=== PATIENT | female | born 1950 | race Caucasian/White ===

== ENCOUNTER 2017-11-07 11:12 | Inpatient (IN) ==
[2017-11-07] MEDS ORDERED: Lidocaine PF 1% Inj 5 ML Syringe INFILTRATN ONE (12:00)
[2017-11-07] MEDS ORDERED: Phenylephrine/NS 1000 MCG/10ML Syringe IV.PUSH ONE (12:00)
[2017-11-07] MEDS ORDERED: Vancomycin Inj 1 GM/200 ML PIGGYBACK IV.SIG ONE (13:23)
[2017-11-07] MEDS ORDERED: Piperacil/Tazo 4.5 GM Premix 4.5 GM/100 ML BAG IV.SIG ONE (13:24)
[2017-11-07 13:57] LABS: Baso # (Auto) 0.1 th/mm3 (0.0-0.2); Baso % (Auto) 0.9 % (0.0-2.0); Eos # (Auto) 0.2 th/mm3 (0.0-0.4); Eos % (Auto) 1.7 % (0.0-4.0); Hematocrit 45.6 % (35.0-46.0); Hemoglobin 15.6 gm/dL (11.6-15.3); Lymph # (Auto) 1.6 th/mm3 (1.0-4.8); Mean Corpuscular HGB Conc 34.1 % (32.0-36.0); Mean Corpuscular Hemoglobin 30.4 pg (27.0-34.0); Mean Corpuscular Volume 89.2 fL (80.0-100.0); Mean Platelet Volume 10.1 fL (7.0-11.0); Mono # (Auto) 0.7 th/mm3 (0.0-0.9); Mono % (Auto) 8.2 % (0.0-8.0); Neut # (Auto) 6.3 th/mm3 (1.8-7.7); Neut % (Auto) 71.2 % (16.0-70.0); Platelet Count 165 th/mm3 (150-450); Red Blood Count 5.11 mil/mm3 (4.00-5.30); Red Cell Distribution Width 13.7 % (11.6-17.2); White Blood Count 8.9 th/mm3 (4.0-11.0)
--- NOTE | 2017-11-07 13:57 | ED ---
HPI General Chief complaint: Extremity Injury, Upper Stated complaint: Hand Surgery Time Seen by Provider: 11/07/17 12:51 Source: patient and family Mode of arrival: ambulatory Limitations: no limitations History of Present Illness HPI narrative: 67-year-old female that presents to the ED for evaluation of admission for hand surgery. Patient reports that she had surgery on October [address] Nichols for an infection of the left third digit. She has been having IV antibiotics through PICC line on the left arm. She states that she has been compliant with the IV medications but today she went to see her doctor who unfortunately some medication and the surgeon on the visit today Dr Al recommended that she comes here for admission for surgery this afternoon as well as new IV antibiotics. She states that currently her pain is 6 out of 10. She denies any fevers chills or sweats. She does have a history of diabetes. Denies any injuries. Denies any numbness, drooling, weakness. She has dressing in place. She denies any other medical issues at this time. Nothing makes the pain better or worse. Related Data Home Medications Medication Instructions Recorded Confirmed ceftriaxone 1 g IM Q24H 11/07/17 11/07/17 Allergies Allergy/AdvReac Type Severity Reaction Status Date / Time morphine Allergy Severe RASH,ITCHIN Verified 11/07/17 12:57 G adhesive Allergy Intermediate SKIN PULLS Verified 11/07/17 12:57 OFF Review of Systems ROS Unobtainable All other systems reviewed negative except as stated in HPI [facility] Medical History Medical History Diabetes (Acute) Heart attack (Acute) Hypertension (Acute) Surgical History Surgical History H/O hand surgery (Acute) Lens replaced (Acute) Previous back surgery (Acute) Social History Social History Substance History: No History of Abuse Second Hand Smoke Exposure: Yes Smoking Status: Current every day smoker Tobacco Type: Cigarettes How Often Do You Have a Drink Containing Alcohol: Never Recent Travel in [facility] within the Last 8 Weeks: No Recent Out of Country Travel within the Last 8 Weeks: No Immunization History Tetanus Immunization: Unsure Hx Influenza Vaccine This Season: Yes Exam Narrative Exam Narrative: GENERAL: Well-appearing SKIN: Focused skin assessment warm/dry. Patient has erythema and signs of surgical scar on the left third digit. Patient has a line on the left arm. HEAD: Atraumatic. Normocephalic. EYES: Pupils equal and round. No scleral icterus. No injection or drainage. ENT: No nasal bleeding or discharge. Mucous membranes pink and moist. Tongue is midline. No uvuladeviation. NECK: Trachea midline. No JVD. CARDIOVASCULAR: Regular rate and rhythm. No murmur appreciated. RESPIRATORY: No accessory muscle use. Clear to auscultation. Breath sounds equal bilaterally. GASTROINTESTINAL: Abdomen soft, non-tender, nondistended. Hepatic and splenic margins not palpable. MUSCULOSKELETAL: No obvious deformities. No clubbing. No cyanosis. No edema. Full range of motion of the upper and lower extremities bilaterally. 2+ pulses bilaterally. Full range of motion of all extremities bilaterally. Some difficulty moving the left third digit. NEUROLOGICAL: Awake and alert. No obvious cranial nerve deficits. Motor grossly within normal limits. Normal speech. PSYCHIATRIC: Appropriate mood and affect; insight and judgment normal. Course Initial Documented Vital Signs Temperature 98.8 F 11/07/17 11:17 Pulse Rate 78 11/07/17 11:17 Respiratory Rate 16 11/07/17 11:17 Blood Pressure 194/85 H 11/07/17 11:17 Pulse Oximetry 95 11/07/17 11:17 Last Documented Vital Signs Temperature 98.8 F 11/07/17 11:17 Pulse Rate 80 11/07/17 13:00 Respiratory Rate 20 11/07/17 13:00 Blood Pressure 197/99 H 11/07/17 13:00 Pulse Oximetry 96 11/07/17 13:00 Medical Decision Making IRAIDA Attestation IRAIDA supervised visit: Yes Attestation: I, Dr. Robertson, have reviewed the advance practice practitioner's documentation and am in agreement, met with the patient face to face, made the diagnosis, and the medical decision making was done by me. *My assessment and Findings: Septic joint 67yo F sent by hand surgeon Dr. Conde for admission and IV antibiotics. Labs reviewed, no leukocytosis. H/H normal. Glucose elevated at 255. C-reactive protein elevated at 0.48. Pt admitted to medicine. MDM Narrative Medical decision making narrative: 67-year-old female that presents to the ED for evaluation of admission for surgery. Patient was properly examined and was found to have signs and symptoms consistent with appears to be significant infection of the left third digit. Patient already evaluated by her surgeon who wanted her to come here to get admitted for surgery at 4:30 pm. I was able to get a hold of Dr. Al over the phone who attested to the plan. He wants x-ray and blood work as well as a new PICC line for the patient to start on new antibiotics as the Rocephin that she is taking is not helping. She wants ID consult as well. NPO. Patient and family agree with plan. Labs and imaging order. Started on Vancomycin and Zosyn. Case will be discussed with NEGRITA Tadeo agrees to admit the patient to his service. Differential Diagnosis Differential Diagnosis: Septic joint versus sepsis versus failed outpatient treatment Medical Records Medical records reviewed: Yes I reviewed the patient's medical records. Lab Data Lab results reviewed: Yes I reviewed the patient's lab results. Lab results narrative: CRP in the 0.4s Result diagrams: 11/07/17 13:35 11/07/17 14:35 Lab Results 11/07/17 11/07/17 11/07/17 Range/Units 13:35 13:35 14:35 WBC 8.9 (4.0-11.0) th/mm3 RBC 5.11 (4.00-5.30) mil/mm3 Hgb 15.6 H (11.6-15.3) gm/dL Hct 45.6 (35.0-46.0) % MCV 89.2 (80.0-100.0) fL MCH 30.4 (27.0-34.0) pg MCHC 34.1 (32.0-36.0) % RDW 13.7 (11.6-17.2) % Plt Count 165 (150-450) th/mm3 MPV 10.1 (7.0-11.0) fL Neut % (Auto) 71.2 H (16.0-70.0) % Lymph % (Auto) 18.0 (9.0-44.0) % [place] % (Auto) 8.2 H (0.0-8.0) % Eos % (Auto) 1.7 (0.0-4.0) % Baso % (Auto) 0.9 (0.0-2.0) % Neut # (Auto) 6.3 (1.8-7.7) th/mm3 Lymph # (Auto) 1.6 (1.0-4.8) th/mm3 [place] # (Auto) 0.7 (0.0-0.9) th/mm3 Eos # (Auto) 0.2 (0.0-0.4) th/mm3 Baso # (Auto) 0.1 (0.0-0.2) th/mm3 WBC Differential . Differential Comment Auto diff final Sodium 138 (136-145) meq/L Potassium 4.5 (3.5-5.1) meq/L Chloride 102 (98-107) meq/L Carbon Dioxide 26.0 (21.0-32.0) meq/L Anion Gap 10 (5-15) meq/L BUN 14 (7-18) mg/dL Creatinine 0.76 (0.50-1.00) mg/dL Estimated GFR 75 L (>89) mL/min Random Glucose 255 H (74-106) mg/dL Calcium 9.1 (8.5-10.1) mg/dL C-Reactive Protein 0.48 H (0.00-0.30) mg/dL Imaging Data Attestation: I personally reviewed and interpreted this imaging study as follows : Radiologist's impression: ITS Impressions Finger X-Ray 11/07/17 13:17 CONCLUSION: Soft tissue swelling and possible subluxation of the PIP joint Discharge Plan Discharge Disposition Patient Disposition: 30 Still Patient Discharge Condition Condition: Stable Physicians Team ED Provider: Lexi Robertson ED Midlevel Provider: Kenji Goddard Primary Care Provider: Primary Care Jeanine Gonzalez Attending Provider: Franki Tadeo Other Providers: Desean Al ; Oumou Koo Status ED Status: Admitted Patient
--- NOTE | 2017-11-07 14:40 | XR ---
EXAM DATE: 11/07/2017 2:22 PM EDT AGE/SEX: 67 years / Female INDICATIONS: Arthritis, evaluate infection 3rd digit of left hand, recent surgery CLINICAL DATA: This is the patient's initial encounter. Patient reports that signs and symptoms have been present for 4 - 6 days and indicates a pain score of 7/10. MEDICAL/SURGICAL HISTORY: Arthritis. . left hand, 3rd digit COMPARISON: No prior exams available for comparison. FINDINGS: Views of the left third digit obtained. There is soft tissue swelling. There does appear to be sublux ation PIP joint. There are slight arthritic changes. No bony destruction. No fracture seen No radiopa que foreign bodies seen. CONCLUSION: Soft tissue swelling and possible subluxation of the PIP joint Electronically signed by: Dell Car MD 11/07/2017 2:39 PM EDT
[2017-11-07 15:37] LABS: Calcium 9.1 mg/dL (8.5-10.1)
[2017-11-07 15:40] LABS: Potassium 4.5 meq/L (3.5-5.1)
--- NOTE | 2017-11-07 16:20 | P.HP ---
History of Present Illness Service: [facility] Primary Care Physician: No Primary Care Physician Chief Complaint: left 3rd finger infection History of Present Illness: Mrs. Su is a 67 yo F with PMH of HTN, T2DM, CAD (s/p prior stenting), tobacco abuse who presents to [facility] ED at recommendation of her hand surgeon for drainage from her left 3rd digit. Patient states that she has been dealing with persistent infection of her left third finger for ~ 1 month. Patient first noticed drainage from area around her L third nail in early October; she went to an urgent care facility and was given oral antibiotics (unspecified). Patient states that her symptoms worsened so she returned to the facility and was given a IM antibiotic. Patient was given instructions to go to a hand surgeon but she was not able to. Patient instead went to ED; I&D performed. Patient was then referred to Dr. Nichols; patient underwent surgical wash 10/20 and subsequent IV antibiotic therapy. She has been following up with infectious disease and hand surgery until she was sent to ED today for additional drainage. No reported fevers. No chest pain, shortness of breath, abnormal bowel movements, or abnormal urination. She is frequently thirsty. Patient states that she has not been taking medications for CAD protection, HTN , or T2DM and that she is generally noncompliant with taking medications at home. - Diagnosis (1) Septic arthritis of interphalangeal joint of finger of left hand (2) T2DM (type 2 diabetes mellitus) (3) HTN (hypertension) (4) CAD (coronary artery disease) (5) Tobacco abuse - Inpatient Certification If this patient has been admitted as an Inpatient: I certify that the inpatient services were ordered in accordance with Medicare regulations governing the order. This includes certification that hospital inpatient services are reasonable and necessary and in the case of services not specified as inpatient-only under 42 CFR 419.22(n), that they are appropriately provided as inpatient services in accordance to with the 2-midnight benchmark under 43 CFR 412.3(e) Review of Systems Constitutional: Denies body ache(s), Denies chills Ears, Nose, Mouth, and Throat: Denies difficulty swallowing, Denies headache(s) Cardiovascular: Denies chest pain, Denies excessive sweating, Denies generalized swelling Respiratory: Denies chest congestion, Denies cough Gastrointestinal: Denies abdominal pain, Denies bright, red blood in stools Musculoskeletal: Reports joint pain (L hand), Reports joint swelling (L hand) Skin/Breast: Denies acne, Denies bleeding lesions Neurologic: Denies abnormal speech, Denies numbness Psychiatric: Denies behavioral changes, Denies change in appetite Endocrine: Reports increased thirst, Denies cold intolerance PMFSH - History History Provided By: Patient - Medical History Medical History: Medical History (Last Updated 11/07/17 @ 16:52 by Oumou Koo MD) Anxiety Cataract Cervical stenosis of spine Osteoarth NOS-shlder Rotator cuff injury Tubal ligation status Diabetes Heart attack Hypertension - Surgical History Surgical History: Surgical History (Last Updated 11/07/17 @ 22:19 by Franki Tadeo MD, R3) History of foot surgery (Acute) H/O hand surgery (Acute) H/O cervical spine surgery History of tonsillectomy - Family History Family History: Family History (Last Updated 11/07/17 @ 22:19 by Franki Tadeo MD, R3) Other CAD (coronary artery disease) - Tobacco History Second Hand Smoke Exposure: Yes Tobacco Use In Past 30 Days: Yes Smoking Status: Current every day smoker Tobacco Type: Cigarettes - Alcohol History How Often Do You Have a Drink Containing Alcohol: Never - Substance Use History Substance History: No History of Abuse - Travel History Recent Travel in the [place] Within the Last 8 Weeks: No Recent Travel Out of the Country Within the Last 8 Weeks: No - Immunization History Tetanus Immunization: Unsure Hx Influenza Vaccine This Season: Yes Medications and Allergies Allergies Allergy/AdvReac Type Severity Reaction Status Date / Time morphine Allergy Severe RASH,ITCHIN Verified 11/07/17 12:57 G adhesive Allergy Intermediate SKIN PULLS Verified 11/07/17 12:57 OFF Home Medications Medication Instructions Recorded Confirmed Type ceftriaxone 1 g IM Q24H 11/07/17 11/07/17 History Exam Vital signs: Vital Signs 11/07/17 11:17 11/07/17 13:00 Temperature 98.8 F Pulse Rate 78 80 Respiratory Rate 16 20 Blood Pressure 194/85 H 197/99 H Pulse Oximetry 95 96 Intake & Output 11/06/17 11/07/17 11/07/17 18:59 06:59 18:59 Intake Total 100 / 100 Balance 100 / 100 Weight 79.746 kg Intake: IV 100 / 100 Zosyn 4.5 GM Premix 4.5 gm In 100 / 100 100 ml @ 200 mls/hr IV.SIG ONCE ONE Rx#:[id number] Narrative: General: NAD Skin: left 3rd finger covered in gauze; no other visible lesions HEENT: normocephalic. Normal mucous membranes Neck: no appreciated thyromegaly CV: Regular rate and rhythm w/o murmurs. Normal peripheral perfusion RESP: CTAB; normal rate ABD: Soft, nontender, nondistended MSK: No calf asymmetry or tenderness. Grossly normal ROM and motor function Neuro: Awake/alert. Grossly normal CN; grossly normal peripheral motor/sensory function Results - Labs CBC & Chem 7: 11/07/17 13:35 11/07/17 14:35 Labs: Laboratory Results - last 24 hr 11/07/17 11/07/17 11/07/17 13:35 13:35 14:35 WBC 8.9 RBC 5.11 Hgb 15.6 H Hct 45.6 MCV 89.2 MCH 30.4 MCHC 34.1 RDW 13.7 Plt Count 165 MPV 10.1 Neut % (Auto) 71.2 H Lymph % (Auto) 18.0 [place] % (Auto) 8.2 H Eos % (Auto) 1.7 Baso % (Auto) 0.9 Neut # (Auto) 6.3 Lymph # (Auto) 1.6 [place] # (Auto) 0.7 Eos # (Auto) 0.2 Baso # (Auto) 0.1 WBC Differential . Differential Comment Auto diff final Sodium 138 Potassium 4.5 Chloride 102 Carbon Dioxide 26.0 Anion Gap 10 BUN 14 Creatinine 0.76 Estimated GFR 75 L Random Glucose 255 H Calcium 9.1 C-Reactive Protein 0.48 H - Imaging Impressions Finger X-Ray 11/07/17 13:17 CONCLUSION: Soft tissue swelling and possible subluxation of the PIP joint Caprini VTE Risk Assessment Caprini VTE Risk Assessment: Moderate/High Risk (score >= 2) VTE Pharmacological Exception Reason: Documented (will wait until 24hrs post-op) Caprini Risk Assessment Model: Point Value = 1 Point Value = 2 Point Value = 3 Point Value = 5 Age 41-60 Minor surgery BMI > 25 kg/m2 Swollen legs Varicose veins or History of unexplained or recurrent spontaneous Oral contraceptives or hormone replacement Sepsis (< 1 month) Serious lung disease, including pneumonia (< 1 month) Abnormal pulmonary function Acute myocardial infarction Congestive heart failure (< 1 month) History of inflammatory bowel disease Medical patient at bed rest Age 61-74 Arthroscopic surgery Major open surgery (> 45 min) Laparoscopic surgery (> 45 min) Malignancy Confined to bed (> 72 hours) Immobilizing plaster cast Central venous access Age >= 75 History of VTE Family history of VTE Factor V Leiden Prothrombin [id number] Lupus anticoagulant Anticardiolipin antibodies Elevated serum homocysteine Heparin-induced thrombocytopenia Other congenital or acquired thrombophilia Stroke (< 1 month) Elective arthroplasty Hip, pelvis, or leg fracture Acute spinal cord injury (< 1 month) Prophylaxis Regimen: Total Risk Factor Score Risk Level Prophylaxis Regimen 0-1 Low Early ambulation 2 Moderate Order ONE of the following: *Sequential Compression Device (SCD) *Heparin 5000 units SQ BID 3-4 Higher Order ONE of the following medications: *Heparin 5000 units SQ TID *Enoxaparin/Lovenox 40 mg SQ daily (WT < 150 kg, CrCl > 30 mL/min) *Enoxaparin/Lovenox 30 mg SQ daily (WT < 150 kg, CrCl > 10-29 mL/min) *Enoxaparin/Lovenox 30 mg SQ BID (WT < 150 kg, CrCl > 30 mL/min) AND/OR *Sequential Compression Device (SCD) 5 or more Highest Order ONE of the following medications: *Heparin 5000 units SQ TID (Preferred with Epidurals) *Enoxaparin/Lovenox 40 mg SQ daily (WT < 150 kg, CrCl > 30 mL/min) *Enoxaparin/Lovenox 30 mg SQ daily (WT < 150 kg, CrCl > 10-29 mL/min) *Enoxaparin/Lovenox 30 mg SQ BID (WT < 150 kg, CrCl > 30 mL/min) AND *Sequential Compression Device (SCD) Assessment and Plan - Assessment (1) Septic arthritis of interphalangeal joint of finger of left hand Code(s): M00.9 - Pyogenic arthritis, unspecified Status: Acute (2) T2DM (type 2 diabetes mellitus) Code(s): E11.9 - Type 2 diabetes mellitus without complications Status: Chronic (3) HTN (hypertension) Code(s): I10 - Essential (primary) hypertension Status: Chronic (4) CAD (coronary artery disease) Code(s): I25.10 - Atherosclerotic heart disease of [place] coronary artery without angina pectoris Status: Chronic (5) Tobacco abuse Code(s): Z72.0 - Tobacco use Status: Chronic - Plan Left finger infection Impression: chronic infection of left hand 3rd digit; refractory to prior surgical intervention and IV antibiotics. Previously with MSSA Hand surgery consulted -s/p arthrotomy wash of DIP joint of left hand -ID consulted -Add Levofloxacin -Continue Vancomycin; pharmacy consulted for dosing -Follow cultures -Check ESR/CRP -Stella 5 for pain control T2DM Impression: Unmedicated at home -Diabetic diet -Will start low dose SS with Accuchecks and determine insulin regimen -Will consider oral meds at discharge -Will check A1C since implications with infection of hand HTN Impression: Prior HTN; reportedly normotensive often at home -Will continue PRN Vasotec -Will start Lisinopril CAD Impression: Prior stenting years prior. Not on ASA, statin, CHERELLE, or BB -Will start ASA 81mg daily -Will start CHERELLE -Will check CMP as patient should have high ASCVD regardless of cholesterol -Will arrange outpatient f/u Tobacco abuse -Will give nicotine patch if desired DVT PPX SCD's Will initiate chemical PPX after >24hrs post op Code Status: Full code Discharge Planning: Per ID and Hand surgery recommendations
[2017-11-07] MEDS ORDERED: Lidocaine PF 2% Inj 10 ML Ampul ONE (16:39)
[2017-11-07] MEDS ORDERED: Bupivacaine PF 0.5% Inj 30 ML Vial ONE (16:39)
[2017-11-07] MEDS ORDERED: Acetaminophen 325 MG Tablet PO PRN (16:42)
[2017-11-07] MEDS ORDERED: Neomycin/Polymyxin G.U. Irrigant 1 ML Ampul ONE (16:44)
[2017-11-07] MEDS ORDERED: Dextrose 50% in Water 50 ML Vial IV.PUSH PRN (16:45)
[2017-11-07] MEDS ORDERED: Sod Chloride 0.9% Inj 1,000 ML IV.CONT SCH (16:45)
--- NOTE | 2017-11-07 16:55 | P.CONID ---
History of Present Illness Service: Infectious disease Consult date: 11/07/17 Requesting Physician: Desean Al Reason for Consult: Evaluate patient with left middle finger infection Primary Care Provider: No Primary Care Physician Family Provider: Marivel Nichols MD History of Present Illness: Patient seen and examined. Records reviewed. Patient is a 67-year-old female, brought into the hospital for further management of her left middle finger infection. 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 Recently she had an infection on her left middle finger with some purulence, and it got worse , and she was seen by Dr. Nichols. Patient underwent surgery for the infection and this was around October 20. Culture from surgery grew methicillin sensitive staph aureus. After surgery patient was apparently started on IV Rocephin once a day. She was referred to infectious disease specialist as an outpatient and had seen her twice. The dressing changes gets done in the hand surgery office at least 2-3 times a week. He was reportedly doing well, and today she was seen in the office, and the covering hand surgeon saw the patient and there was some purulence seen so the patient was told to go to the hospital for further management. She has not had any fever chills or sweats. She has not had any rash or itching. She has been getting diarrhea since she has been on IV antibiotics. No nausea or vomiting. Infectious disease consultation has been requested to evaluate the patient. Review of Systems Constitutional: Denies chills, Denies fever(s) Eyes: Denies discharge, Denies itchy eyes Ears, Nose, Mouth, and Throat: Denies difficulty swallowing, Denies ear discharge, Denies ear pain, Denies facial pain, Denies hoarseness, Denies sore throat Cardiovascular: Denies chest pain, Denies shortness of breath Respiratory: Denies cough, Denies shortness of breath Gastrointestinal: Reports loose stools, Denies abdominal pain, Denies nausea, Denies pain with swallowing, Denies vomiting Genitourinary: Denies urinary incontinence, Denies urinary urgency Skin/Breast: Denies itching Neurologic: Denies weakness Hematologic/Lymphatic: Denies easy bleeding, Denies easy bruising PMFSH - History History Provided By: Patient - Medical History Medical History: Medical History (Last Updated 11/07/17 @ 16:52 by Oumou Koo MD) Anxiety Cataract Cervical stenosis of spine Osteoarth NOS-shlder Rotator cuff injury Tubal ligation status Diabetes Heart attack Hypertension - Surgical History Surgical History: Surgical History (Last Updated 11/07/17 @ 16:49 by Oumou Koo MD) H/O cervical spine surgery History of foot surgery History of tonsillectomy H/O hand surgery - Tobacco History Second Hand Smoke Exposure: Yes Tobacco Use In Past 30 Days: Yes Smoking Status: Current every day smoker Tobacco Type: Cigarettes - Alcohol History How Often Do You Have a Drink Containing Alcohol: Never - Substance Use History Substance History: No History of Abuse - Travel History Recent Travel in the [place] Within the Last 8 Weeks: No Recent Travel Out of the Country Within the Last 8 Weeks: No - Immunization History Tetanus Immunization: Unsure Hx Influenza Vaccine This Season: Yes Medications and Allergies Allergies Allergy/AdvReac Type Severity Reaction Status Date / Time morphine Allergy Severe RASH,ITCHIN Verified 11/07/17 12:57 G adhesive Allergy Intermediate SKIN PULLS Verified 11/07/17 12:57 OFF Home Medications Medication Instructions Recorded Confirmed Type ceftriaxone 1 g IM Q24H 11/07/17 11/07/17 History Exam Vital signs: Vital Signs 11/07/17 11:17 11/07/17 13:00 Temperature 98.8 F Pulse Rate 78 80 Respiratory Rate 16 20 Blood Pressure 194/85 H 197/99 H Pulse Oximetry 95 96 Intake & Output 11/06/17 11/07/17 11/07/17 18:59 06:59 18:59 Intake Total 100 / 100 Balance 100 / 100 Weight 79.746 kg Intake: IV 100 / 100 Zosyn 4.5 GM Premix 4.5 gm In 100 / 100 100 ml @ 200 mls/hr IV.SIG ONCE ONE Rx#:[id number] Narrative: Physical Examination GENERAL: Patient is a well-nourished, well-developed female, awake and alert , not in respiratory distress. SKIN: Warm and dry. No generalized rash, no ecchymoses and no evidence of embolic lesions. HEAD: Atraumatic. Normocephalic. No temporal wasting, or tenderness. EYES: [place] conjunctiva. No petechia or hemorrhage. Pupils equal, round and reactive to light. Extraocular movements full and intact. No scleral icterus. No injection or drainage. EARS, NOSE AND THROAT: Nose without bleeding or purulent nasal discharge. No sinus tenderness. Mucous membranes pink and moist. No oral lesions noted. No exudate. No oral thrush. NECK: Trachea midline. Supple and not tender, no meningeal signs CARDIOVASCULAR: Regular rate and rhythm. No murmurs, rubs or gallops heard RESPIRATORY: Clear to auscultation. Breath sounds equal bilaterally. No rales , wheezing or rhonchi ABDOMEN: Soft, non-tender, nondistended. Bowel sounds present and normoactive. No guarding. No rebound. No organomegaly. EXTREMITIES: No clubbing, cyanosis, or edema. L hand - LMF swollen with dark pink color, incision dry, and a deformity prominence below the base on nail, tender on palpation, not fluctuant, no purulence seen. No calf tenderness. Well perfused and warm. NEUROLOGICAL: Awake and alert. Cranial nerves grossly intact. Motor grossly within normal limits. PSYCHIATRIC: Normal affect, calm and cooperative. LINE: No evidence of infection Results - Labs CBC & Chem 7: 11/07/17 13:35 11/07/17 14:35 Labs: Laboratory Results - last 24 hr 11/07/17 11/07/17 11/07/17 13:35 13:35 14:35 WBC 8.9 RBC 5.11 Hgb 15.6 H Hct 45.6 MCV 89.2 MCH 30.4 MCHC 34.1 RDW 13.7 Plt Count 165 MPV 10.1 Neut % (Auto) 71.2 H Lymph % (Auto) 18.0 [place] % (Auto) 8.2 H Eos % (Auto) 1.7 Baso % (Auto) 0.9 Neut # (Auto) 6.3 Lymph # (Auto) 1.6 [place] # (Auto) 0.7 Eos # (Auto) 0.2 Baso # (Auto) 0.1 WBC Differential . Differential Comment Auto diff final Sodium 138 Potassium 4.5 Chloride 102 Carbon Dioxide 26.0 Anion Gap 10 BUN 14 Creatinine 0.76 Estimated GFR 75 L Random Glucose 255 H Calcium 9.1 C-Reactive Protein 0.48 H - Imaging Impressions Finger X-Ray 11/07/17 13:17 CONCLUSION: Soft tissue swelling and possible subluxation of the PIP joint Assessment and Plan - Plan IMPRESSION LMF infection - previous surgery done and C/S MSSA - ?worsening, ?new infection, ?different organism, ?developing deeper infection Diarrhea, possibly Abx associated, R/O C diff colitis RECOMMENDATION ESR and CRP To go to OR today Received dose of Vanco and Zosyn today Will continue vanco Add Levaquin for now Follow C/S results Will D/W hand surgery after surgery done to determine course of Abx Rx Monitor progress I will follow along with you Thank you for this consultation Explained plan to patient and family
[2017-11-07] MEDS ORDERED: Vancomycin Consult Pharmacy 1 EACH OTHER SCH (17:00)
--- NOTE | 2017-11-07 18:33 | P.OP ---
- Preoperative Diagnosis (1) Septic arthritis of interphalangeal joint of finger of left hand - Postoperative Diagnosis (1) Septic arthritis of interphalangeal joint of finger of left hand Date of procedure: 11/07/17 Procedure: arthrotomy wash distal interphalangeal joint left middle finger Anesthesia: MAC Surgeon: Desean Al MD Estimated blood loss (mL): 5 Tourniquet time (min): 24 Pathology: other (swab for culture sensitivity) Operation and Findings: septic arthritis with loss of cartilage head of middle phalanx distal interphalangeal joint left middle finger
[2017-11-07] MEDS ORDERED: HYDROmorphone PF Inj 2 MG/ML Vial ONE (18:35)
[2017-11-07] MEDS ORDERED: fentaNYL Citrate Inj 100 MCG/2 ML Ampul ONE (18:36)
--- NOTE | 2017-11-07 19:13 | MP ---
cc: Desean Al MD, Srikanth MD DATE OF OPERATION: 11/07/2017 PREOPERATIVE DIAGNOSIS: Septic arthritis distal interphalangeal joint, left middle finger. POSTOPERATIVE DIAGNOSIS: Septic arthritis distal interphalangeal joint, left middle finger. PROCEDURE: Arthrotomy and wash distal interphalangeal joint, left middle finger. SURGEON: Desean Al MD ANESTHESIA: General. ESTIMATED BLOOD LOSS: 5 mL TOURNIQUET TIME: 24 minutes at 250 mmHg. SPECIMENS: Sent for culture and sensitivity. DISPOSITION: The patient was recovered and sent to recovery in stable condition. INDICATIONS: The patient is a 67-year-old female with history of diabetes who was found to have septic arthritis of the distal interphalangeal joint, left middle finger. The patient had incision, drainage, and arthrotomy by my partner 2 weeks ago. She presented today with complaints of pain and swelling of the left middle finger. On examination, she had draining purulent material from the mid axial incision of the distal interphalangeal joint with surrounding swelling and erythema. Previously, cultures grew MSSA. She was consented for exploration, wash, arthrotomy distal interphalangeal joint, left middle finger. The patient was explained the risks and benefits of the procedure. PROCEDURE IN DETAIL: The patient was brought to the operating room and, under general anesthesia, the left upper extremity was sterilely prepped and draped. After limb elevation, tourniquet was inflated to 250 mmHg. A H-shaped incision was marked over the dorsal aspect of the distal interphalangeal joint, incorporating the previous mid axial incision. After limb elevation, tourniquet was inflated to 250mmHg. Incision was then made over the proposed incision site. soft tissue dissection was carried out. There was evidence of minimal purulence within the distal interphalangeal joint. The extensor tendon was protected and the joint was exposed, both on the radial and ulnar aspect. There was evidence of loss of cartilage from the head of the middle phalanx. A swab was obtained for culture and sensitivity. A thorough wash was given using normal saline mixed with irrigant; about a liter of solution was used. Tourniquet was deflated at 24 minutes. Packing of the joint was carried out using 1/4 inch iodoform packing material and the skin incisions were loosely approximated using 4-0 nylon in a horizontal mattress interrupted fashion. About 3 mL of local anesthesia was injected proximal aspect digital block over the dorsal aspect. She had good distal circulation at the end of the procedure. Dry dressing was applied which was held in place by Kerlix and finger splint was applied. The patient was recovered and sent to recovery in stable condition. Plan will be to continue IV antibiotics based on Infectious Disease recommendation. We will change the dressing tomorrow. Desean Al MD SE/ , 06:46 PM , 07:12 PM [email or web address]
[2017-11-07] MEDS ORDERED: Lisinopril 10 MG Tablet PO SCH (23:08)
[2017-11-07] MEDS: Insulin NovoLOG Aspart Correctional Sugar Inj SQ SCH (23:41)
[2017-11-08] MEDS: Vancomycin Inj 1,500 MG in Sodium Chlor 0.9% Inj 500 ML IV.SIG SCH ×2 (04:42→21:06)
[2017-11-08 05:07] LABS: Baso % (Auto) 0.5 % (0.0-2.0); Eos # (Auto) 0.1 th/mm3 (0.0-0.4); Eos % (Auto) 1.4 % (0.0-4.0); Hematocrit 44.2 % (35.0-46.0); Hemoglobin 14.9 gm/dL (11.6-15.3); Lymph # (Auto) 1.4 th/mm3 (1.0-4.8); Lymph % (Auto) 17.4 % (9.0-44.0); Mean Corpuscular HGB Conc 33.8 % (32.0-36.0); Mean Corpuscular Hemoglobin 30.5 pg (27.0-34.0); Mean Corpuscular Volume 90.3 fL (80.0-100.0); Mono # (Auto) 0.8 th/mm3 (0.0-0.9); Mono % (Auto) 9.4 % (0.0-8.0); Neut # (Auto) 5.8 th/mm3 (1.8-7.7); Neut % (Auto) 71.3 % (16.0-70.0); Platelet Count 135 th/mm3 (150-450); Red Blood Count 4.89 mil/mm3 (4.00-5.30); Red Cell Distribution Width 13.5 % (11.6-17.2); White Blood Count 8.1 th/mm3 (4.0-11.0)
[2017-11-08 05:30] LABS: Alanine Aminotransferase 25 U/L (10-53); C-Reactive Protein 0.66 mg/dL (0.00-0.30)
[2017-11-08 05:33] LABS: Albumin 3.2 g/dL (3.4-5.0); Alkaline Phosphatase 137 U/L (45-117); Anion Gap 10 meq/L (5-15); Aspartate Aminotransferase 17 U/L (15-37); Blood Urea Nitrogen 14 mg/dL (7-18); Calcium 8.9 mg/dL (8.5-10.1); Carbon Dioxide 25.9 meq/L (21.0-32.0); Chloride 102 meq/L (98-107); Glomerular Filtration Rate 78 mL/min (>89); Glucose,Random 272 mg/dL (74-106); Potassium 3.9 meq/L (3.5-5.1); Sodium 138 meq/L (136-145); Total Protein 6.6 g/dL (6.4-8.2)
[2017-11-08] MEDS: Senna/Docusate Sodium 8.6/50 MG Tablet PO SCH ×2 (06:18→21:05)
[2017-11-08] MEDS ORDERED: levoFLOXacin 750 MG Tablet PO SCH (09:00)
--- NOTE | 2017-11-08 10:31 | P.PN ---
Subjective Interval history: Mrs. Su was hypertensive today with BP 211/93 this morning. Patient did not report headache, chest pain, visual changes, abnormal urination, or other symptoms associated with her elevated blood pressure. Patient reports some frustration with restricted diet. Patient does not report pain in her left hand at this time after surgery. Patient refuses oral Levofloxacin, stating that since childhood she does not take medications. Physical Exam Vital signs: Vital Signs 11/07/17 11:17 11/07/17 13:00 11/07/17 16:53 Temperature 98.8 F Pulse Rate 78 80 76 Respiratory Rate 16 20 17 Blood Pressure 194/85 H 197/99 H 199/90 H Pulse Oximetry 95 96 11/07/17 18:25 11/07/17 18:30 11/07/17 18:45 Temperature 98.5 F 98.5 F 98.5 F Pulse Rate 79 79 79 Respiratory Rate 16 16 16 Blood Pressure 152/90 H 163/65 H 175/81 H Pulse Oximetry 94 L 94 L 94 L 11/07/17 19:00 11/07/17 19:19 11/07/17 19:30 Temperature 98.5 F 98.1 F 98.5 F Pulse Rate 72 69 79 Respiratory Rate 16 16 16 Blood Pressure 157/75 H 169/73 H 169/73 H Pulse Oximetry 94 L 96 94 L 11/07/17 21:00 11/07/17 21:36 11/08/17 00:00 Temperature 98.1 F 97.7 F Pulse Rate 67 73 Respiratory Rate 18 18 Blood Pressure 149/68 H 151/85 H Pulse Oximetry 97 97 97 11/08/17 04:00 Temperature 97.2 F L Pulse Rate 73 Respiratory Rate 18 Blood Pressure 147/65 H Pulse Oximetry Intake & Output 11/07/17 11/08/17 11/08/17 18:59 06:59 18:59 Intake Total 100 / 100 600 / 600 1000 / 1000 Output Total 5 / 5 Balance 100 / 100 595 / 595 1000 / 1000 Weight 79.746 kg Intake: IV 100 / 100 1000 / 1000 NS Inj 1,000 ML @ 100 mls/hr IV 1000 / 1000 .CONT .Q10H [facility] Rx#:[id number] Zosyn 4.5 GM Premix 4.5 gm In 100 / 100 100 ml @ 200 mls/hr IV.SIG ONCE ONE Rx#:[id number] Anesthesia Amount 600 / 600 Output: Estimated Blood Loss 5 / 5 Narrative: General: NAD Skin: left 3rd finger covered in gauze; no other visible lesions HEENT: normocephalic. Normal mucous membranes Neck: no appreciated thyromegaly CV: Regular rate and rhythm w/o murmurs. Normal peripheral perfusion RESP: CTAB; normal rate ABD: Soft, nontender, nondistended MSK: No calf asymmetry or tenderness. Grossly normal ROM and motor function Neuro: Awake/alert. Grossly normal CN; grossly normal peripheral motor/sensory function PSYCH: Patient anxious, crying initially Results - Labs CBC & Chem 7: 11/08/17 03:58 11/08/17 03:58 Laboratory Results - last 24 hr 11/07/17 11/07/17 11/07/17 13:35 13:35 14:35 WBC 8.9 RBC 5.11 Hgb 15.6 H Hct 45.6 MCV 89.2 MCH 30.4 MCHC 34.1 RDW 13.7 Plt Count 165 MPV 10.1 Neut % (Auto) 71.2 H Lymph % (Auto) 18.0 [place] % (Auto) 8.2 H Eos % (Auto) 1.7 Baso % (Auto) 0.9 Neut # (Auto) 6.3 Lymph # (Auto) 1.6 [place] # (Auto) 0.7 Eos # (Auto) 0.2 Baso # (Auto) 0.1 WBC Differential . Differential Comment Auto diff final ESR Sodium 138 Potassium 4.5 Chloride 102 Carbon Dioxide 26.0 Anion Gap 10 BUN 14 Creatinine 0.76 Estimated GFR 75 L POC Glucose Random Glucose 255 H Calcium 9.1 Total Bilirubin AST ALT Alkaline Phosphatase C-Reactive Protein 0.48 H Total Protein Albumin 11/07/17 11/07/17 11/08/17 19:23 23:37 03:58 WBC 8.1 RBC 4.89 Hgb 14.9 Hct 44.2 MCV 90.3 MCH 30.5 MCHC 33.8 RDW 13.5 Plt Count 135 L MPV 9.0 Neut % (Auto) 71.3 H Lymph % (Auto) 17.4 [place] % (Auto) 9.4 H Eos % (Auto) 1.4 Baso % (Auto) 0.5 Neut # (Auto) 5.8 Lymph # (Auto) 1.4 [place] # (Auto) 0.8 Eos # (Auto) 0.1 Baso # (Auto) 0.0 WBC Differential . Differential Comment Auto diff final ESR Sodium Potassium Chloride Carbon Dioxide Anion Gap BUN Creatinine Estimated GFR POC Glucose 221 H 290 H Random Glucose Calcium Total Bilirubin AST ALT Alkaline Phosphatase C-Reactive Protein Total Protein Albumin 11/08/17 11/08/17 11/08/17 03:58 03:58 07:35 WBC RBC Hgb Hct MCV MCH MCHC RDW Plt Count MPV Neut % (Auto) Lymph % (Auto) [place] % (Auto) Eos % (Auto) Baso % (Auto) Neut # (Auto) Lymph # (Auto) [place] # (Auto) Eos # (Auto) Baso # (Auto) WBC Differential Differential Comment ESR 12 Sodium 138 Potassium 3.9 Chloride 102 Carbon Dioxide 25.9 Anion Gap 10 BUN 14 Creatinine 0.74 Estimated GFR 78 L POC Glucose 258 H Random Glucose 272 H Calcium 8.9 Total Bilirubin 0.4 AST 17 ALT 25 Alkaline Phosphatase 137 H C-Reactive Protein 0.66 H Total Protein 6.6 Albumin 3.2 L - Imaging Impressions Finger X-Ray 11/07/17 13:17 CONCLUSION: Soft tissue swelling and possible subluxation of the PIP joint Assessment and Plan - Assessment (1) Septic arthritis of interphalangeal joint of finger of left hand Code(s): M00.9 - Pyogenic arthritis, unspecified Status: Acute (2) T2DM (type 2 diabetes mellitus) Code(s): E11.9 - Type 2 diabetes mellitus without complications Status: Chronic (3) HTN (hypertension) Code(s): I10 - Essential (primary) hypertension Status: Chronic (4) CAD (coronary artery disease) Code(s): I25.10 - Atherosclerotic heart disease of [place] coronary artery without angina pectoris Status: Chronic (5) Tobacco abuse Code(s): Z72.0 - Tobacco use Status: Chronic - Plan Left finger infection Impression: chronic infection of left hand 3rd digit; refractory to prior surgical intervention and IV antibiotics. Previously with MSSA. ESR 12, Cr 0.66. Blood cultures- negative x1 day Hand surgery consulted -s/p arthrotomy wash of DIP joint of left hand 11/07 -ID consulted - Continue Levofloxacin (switch to IV) -Continue Vancomycin; pharmacy consulted for dosing -[place] 5 for pain control T2DM Impression: Unmedicated at home -Diabetic diet -Continue low dose SS with Accuchecks and determine insulin regimen -Will consider oral meds at discharge -Will check A1C since implications with infection of hand HTN Impression: Hypertensive urgency today (BP 211/93 without symptoms, no lab abnormalities) Prior HTN; reportedly normotensive often at home -Will continue PRN Vasotec -Continue Lisinopril 20mg daily CAD Impression: Prior stenting years prior. Not on ASA, statin, CHERELLE, or BB -Continue ASA 81mg daily -Will start CHERELLE -Will arrange outpatient f/u Tobacco abuse -Will give nicotine patch if desired DVT PPX SCD's Will initiate chemical PPX after >24hrs post op Discharge Planning: Per ID and Hand surgery recommendations (4) CAD (coronary artery disease) Qualifiers: Coronary Disease-Associated Artery/Lesion type: [place] artery
[2017-11-08] MEDS ORDERED: LORazepam 0.5 MG Tablet PO PRN (10:33)
[2017-11-08] MEDS: Insulin NovoLOG Aspart Correctional Sugar Inj SQ SCH ×2 (14:31→21:04)
--- NOTE | 2017-11-08 19:51 | P.PNOP ---
Subjective Interval history: Patient asking to go home. Reports pain controlled over finger. Physical Exam Vital signs: Vital Signs 11/07/17 21:00 11/07/17 21:36 11/08/17 00:00 Temperature 98.1 F 97.7 F Pulse Rate 67 73 Respiratory Rate 18 18 Blood Pressure 149/68 H 151/85 H Pulse Oximetry 97 97 97 11/08/17 04:00 11/08/17 08:00 11/08/17 08:15 Temperature 97.2 F L 98.5 F Pulse Rate 73 97 H Respiratory Rate 18 20 Blood Pressure 147/65 H 211/93 H Pulse Oximetry 95 95 11/08/17 15:45 11/08/17 16:00 Temperature 98.1 F Pulse Rate 73 Respiratory Rate 18 Blood Pressure 181/82 H Pulse Oximetry 95 94 L Intake & Output 11/08/17 11/08/17 11/09/17 06:59 18:59 06:59 Intake Total 600 / 600 1000 / 1000 Output Total 5 / 5 Balance 595 / 595 1000 / 1000 Intake: IV 1000 / 1000 NS Inj 1,000 ML @ 100 mls/hr IV 1000 / 1000 .CONT .Q10H [facility] Rx#:[id number] Anesthesia Amount 600 / 600 Output: Estimated Blood Loss 5 / 5 - Routine Extremities Exam Comments: Dressing removed. Erythema over DIP joint left middle finger. Packing in place. No purulence from radial side. Purulence around ulnar side. sensation intact radial and ulnar sides. <2 sec capillary refill Results - Labs CBC & Chem 7: 11/08/17 03:58 11/08/17 03:58 Laboratory Results - last 24 hr 11/07/17 11/07/17 11/08/17 19:23 23:37 03:58 WBC 8.1 RBC 4.89 Hgb 14.9 Hct 44.2 MCV 90.3 MCH 30.5 MCHC 33.8 RDW 13.5 Plt Count 135 L MPV 9.0 Neut % (Auto) 71.3 H Lymph % (Auto) 17.4 [place] % (Auto) 9.4 H Eos % (Auto) 1.4 Baso % (Auto) 0.5 Neut # (Auto) 5.8 Lymph # (Auto) 1.4 [place] # (Auto) 0.8 Eos # (Auto) 0.1 Baso # (Auto) 0.0 WBC Differential . Differential Comment Auto diff final ESR Sodium Potassium Chloride Carbon Dioxide Anion Gap BUN Creatinine Estimated GFR POC Glucose 221 H 290 H Random Glucose Calcium Total Bilirubin AST ALT Alkaline Phosphatase C-Reactive Protein Total Protein Albumin 11/08/17 11/08/17 11/08/17 03:58 03:58 07:35 WBC RBC Hgb Hct MCV MCH MCHC RDW Plt Count MPV Neut % (Auto) Lymph % (Auto) [place] % (Auto) Eos % (Auto) Baso % (Auto) Neut # (Auto) Lymph # (Auto) [place] # (Auto) Eos # (Auto) Baso # (Auto) WBC Differential Differential Comment ESR 12 Sodium 138 Potassium 3.9 Chloride 102 Carbon Dioxide 25.9 Anion Gap 10 BUN 14 Creatinine 0.74 Estimated GFR 78 L POC Glucose 258 H Random Glucose 272 H Calcium 8.9 Total Bilirubin 0.4 AST 17 ALT 25 Alkaline Phosphatase 137 H C-Reactive Protein 0.66 H Total Protein 6.6 Albumin 3.2 L 11/08/17 11/08/17 12:05 17:27 WBC RBC Hgb Hct MCV MCH MCHC RDW Plt Count MPV Neut % (Auto) Lymph % (Auto) [place] % (Auto) Eos % (Auto) Baso % (Auto) Neut # (Auto) Lymph # (Auto) [place] # (Auto) Eos # (Auto) Baso # (Auto) WBC Differential Differential Comment ESR Sodium Potassium Chloride Carbon Dioxide Anion Gap BUN Creatinine Estimated GFR POC Glucose 221 H 191 H Random Glucose Calcium Total Bilirubin AST ALT Alkaline Phosphatase C-Reactive Protein Total Protein Albumin Microbiology 11/07/17 13:35 Blood - Peripheral Aerobic Blood Culture - Preliminary No growth in 1 day 11/07/17 13:35 Blood - Peripheral Anaerobic Blood Culture - Preliminary No growth in 1 day 11/07/17 13:40 Blood - Peripheral Aerobic Blood Culture - Preliminary No growth in 1 day 11/07/17 13:40 Blood - Peripheral Anaerobic Blood Culture - Preliminary No growth in 1 day Assessment and Plan - Ortho Post Op Day # 1 - Assessment and Plan 67yF POD1 s/p repeat I&D left middle finger DIP joint -Continue to follow cultures, continue Ab per ID -Dr Conde to re-evaluate tomorrow
[2017-11-08] MEDS: Temazepam 15 MG Capsule PO PRN (21:05)
[2017-11-09] MEDS: Insulin NovoLOG Aspart Correctional Sugar Inj SQ SCH ×5 (03:10→21:08)
[2017-11-09 06:01] LABS: Baso % (Auto) 0.7 % (0.0-2.0); Eos # (Auto) 0.2 th/mm3 (0.0-0.4); Eos % (Auto) 3.6 % (0.0-4.0); Hematocrit 42.6 % (35.0-46.0); Hemoglobin 14.3 gm/dL (11.6-15.3); Lymph # (Auto) 1.9 th/mm3 (1.0-4.8); Lymph % (Auto) 28.9 % (9.0-44.0); Mean Corpuscular HGB Conc 33.6 % (32.0-36.0); Mean Corpuscular Hemoglobin 30.3 pg (27.0-34.0); Mean Corpuscular Volume 90.1 fL (80.0-100.0); Mean Platelet Volume 8.9 fL (7.0-11.0); Mono # (Auto) 0.8 th/mm3 (0.0-0.9); Mono % (Auto) 11.4 % (0.0-8.0); Neut # (Auto) 3.7 th/mm3 (1.8-7.7); Neut % (Auto) 55.4 % (16.0-70.0); Platelet Count 126 th/mm3 (150-450); Red Blood Count 4.72 mil/mm3 (4.00-5.30); Red Cell Distribution Width 13.3 % (11.6-17.2); White Blood Count 6.6 th/mm3 (4.0-11.0)
[2017-11-09 06:24] LABS: Anion Gap 9 meq/L (5-15); Blood Urea Nitrogen 14 mg/dL (7-18); Carbon Dioxide 25.7 meq/L (21.0-32.0); Chloride 104 meq/L (98-107); Glomerular Filtration Rate Greater Than 89 mL/min (>89); Glucose,Random 202 mg/dL (74-106); Potassium 3.6 meq/L (3.5-5.1); Sodium 139 meq/L (136-145)
[2017-11-09] MEDS ORDERED: Lisinopril 20 MG Tablet PO SCH (12:00)
--- NOTE | 2017-11-09 12:38 | P.PNID ---
Subjective Remarks: Patient is a 67-year-old female, brought into the hospital for further management of her left middle finger infection. 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 Recently she had an infection on her left middle finger with some purulence, and it got worse , and she was seen by Dr. Nichols. Patient underwent surgery for the infection and this was around October 20. Culture from surgery grew methicillin sensitive staph aureus. After surgery patient was apparently started on IV Rocephin once a day. She was referred to infectious disease specialist as an outpatient and had seen her twice. The dressing changes gets done in the hand surgery office at least 2-3 times a week. He was reportedly doing well, and today she was seen in the office, and the covering hand surgeon saw the patient and there was some purulence seen so the patient was told to go to the hospital for further management. She has not had any fever chills or sweats. She has not had any rash or itching. She has been getting diarrhea since she has been on IV antibiotics. No nausea or vomiting. Infectious disease consultation has been requested to evaluate the patient. Notes reviewed Temps ok No new complaints Spoke with micro - they just got the specimen from OR, it was sitting in refrigerator in the OR Antibiotics: vancomycin Levaquin Lines: PIV no evidence of infection Past Medical History: Anxiety Cataract Cervical stenosis of spine Osteoarth NOS-shlder Rotator cuff injury Tubal ligation status Diabetes Heart attack Hypertension Surgical History H/O cervical spine surgery History of foot surgery History of tonsillectomy H/O hand surgery Allergies/Adverse Reactions: Allergies morphine Allergy (Severe, Verified 11/07/17 12:57) RASH,ITCHING adhesive Allergy (Intermediate, Verified 11/07/17 12:57) SKIN PULLS OFF Objective Vital Signs 11/08/17 15:45 11/08/17 16:00 11/08/17 20:00 Temperature 98.1 F 98.1 F Pulse Rate 73 92 H Respiratory Rate 18 17 Blood Pressure 181/82 H 148/72 H Pulse Oximetry 95 94 L 94 L 11/09/17 00:06 11/09/17 04:06 11/09/17 08:00 Temperature 98.1 F 98.2 F Pulse Rate 61 61 63 Respiratory Rate 18 18 20 Blood Pressure 153/72 H 147/67 H 161/70 H Pulse Oximetry 96 95 96 Intake & Output 11/08/17 11/09/17 11/09/17 18:59 06:59 18:59 Intake Total 1000 / 1000 Balance 1000 / 1000 Weight 84.8 kg Intake: IV 1000 / 1000 NS Inj 1,000 ML @ 100 mls/hr IV 1000 / 1000 .CONT .Q10H [facility] Rx#:[id number] Other: # Voids 4 # Bowel Movements 1 11/07/17 13:35 Blood - Peripheral Aerobic Blood Culture - Preliminary No growth in 2 days 11/07/17 13:35 Blood - Peripheral Anaerobic Blood Culture - Preliminary No growth in 2 days 11/07/17 13:40 Blood - Peripheral Aerobic Blood Culture - Preliminary No growth in 2 days 11/07/17 13:40 Blood - Peripheral Anaerobic Blood Culture - Preliminary No growth in 2 days Lab - Hematology Results 11/07/17 11/08/17 11/08/17 13:35 03:58 03:58 WBC 8.9 8.1 RBC 5.11 4.89 Hgb 15.6 H 14.9 Hct 45.6 44.2 MCV 89.2 90.3 MCH 30.4 30.5 MCHC 34.1 33.8 RDW 13.7 13.5 Plt Count 165 135 L MPV 10.1 9.0 Neut % (Auto) 71.2 H 71.3 H Lymph % (Auto) 18.0 17.4 [place] % (Auto) 8.2 H 9.4 H Eos % (Auto) 1.7 1.4 Baso % (Auto) 0.9 0.5 Neut # (Auto) 6.3 5.8 Lymph # (Auto) 1.6 1.4 [place] # (Auto) 0.7 0.8 Eos # (Auto) 0.2 0.1 Baso # (Auto) 0.1 0.0 WBC Differential . . Differential Comment Auto diff final Auto diff final ESR 12 11/09/17 05:35 WBC 6.6 RBC 4.72 Hgb 14.3 Hct 42.6 MCV 90.1 MCH 30.3 MCHC 33.6 RDW 13.3 Plt Count 126 L MPV 8.9 Neut % (Auto) 55.4 Lymph % (Auto) 28.9 [place] % (Auto) 11.4 H Eos % (Auto) 3.6 Baso % (Auto) 0.7 Neut # (Auto) 3.7 Lymph # (Auto) 1.9 [place] # (Auto) 0.8 Eos # (Auto) 0.2 Baso # (Auto) 0.0 WBC Differential . Differential Comment Auto diff final ESR Lab - Chemistry Results 11/07/17 11/07/17 11/07/17 13:35 14:35 19:23 Sodium 138 Potassium 4.5 Chloride 102 Carbon Dioxide 26.0 Anion Gap 10 BUN 14 Creatinine 0.76 Estimated GFR 75 L POC Glucose 221 H Random Glucose 255 H Calcium 9.1 Total Bilirubin AST ALT Alkaline Phosphatase C-Reactive Protein 0.48 H Total Protein Albumin 11/07/17 11/08/17 11/08/17 23:37 03:58 07:35 Sodium 138 Potassium 3.9 Chloride 102 Carbon Dioxide 25.9 Anion Gap 10 BUN 14 Creatinine 0.74 Estimated GFR 78 L POC Glucose 290 H 258 H Random Glucose 272 H Calcium 8.9 Total Bilirubin 0.4 AST 17 ALT 25 Alkaline Phosphatase 137 H C-Reactive Protein 0.66 H Total Protein 6.6 Albumin 3.2 L 11/08/17 11/08/17 11/08/17 12:05 17:27 20:14 Sodium Potassium Chloride Carbon Dioxide Anion Gap BUN Creatinine Estimated GFR POC Glucose 221 H 191 H 192 H Random Glucose Calcium Total Bilirubin AST ALT Alkaline Phosphatase C-Reactive Protein Total Protein Albumin 11/09/17 11/09/17 11/09/17 03:08 05:35 07:43 Sodium 139 Potassium 3.6 Chloride 104 Carbon Dioxide 25.7 Anion Gap 9 BUN 14 Creatinine 0.64 Estimated GFR Greater than 89 POC Glucose 221 H 186 H Random Glucose 202 H Calcium 9.0 Total Bilirubin AST ALT Alkaline Phosphatase C-Reactive Protein Total Protein Albumin 11/09/17 11:47 Sodium Potassium Chloride Carbon Dioxide Anion Gap BUN Creatinine Estimated GFR POC Glucose 234 H Random Glucose Calcium Total Bilirubin AST ALT Alkaline Phosphatase C-Reactive Protein Total Protein Albumin Imaging: ITS Impressions Finger X-Ray 11/07/17 13:17 CONCLUSION: Soft tissue swelling and possible subluxation of the PIP joint Physical Exam: Physical Examination GENERAL: awake and alert, not in respiratory distress. SKIN: Cool and dry. No generalized rash HEAD: Atraumatic. Normocephalic. No temporal wasting, or tenderness. EYES: [place] conjunctiva. No petechia or hemorrhage. Pupils equal, round and reactive to light. Extraocular movements full and intact. No scleral icterus. No injection or drainage. EARS, NOSE AND THROAT: Nose without bleeding or purulent nasal discharge. No sinus tenderness. Mucous membranes pink and moist. No oral lesions noted. No exudate. No oral thrush. NECK: Trachea midline. Supple and not tender, no meningeal signs CARDIOVASCULAR: Regular rate and rhythm. No murmurs, rubs or gallops heard RESPIRATORY: Clear to auscultation. Breath sounds equal bilaterally. No rales , wheezing or rhonchi ABDOMEN: Soft, non-tender, nondistended. Bowel sounds present and normoactive. No guarding. No rebound. No organomegaly. EXTREMITIES: No clubbing, cyanosis, or edema. L hand - LMF with dry intact dressing NEUROLOGICAL: Grossly non-focal PSYCHIATRIC: Normal affect, calm and cooperative. LINE: No evidence of infection Assessment and Plan - Plan IMPRESSION LMF infection - previous surgery done and C/S MSSA - ?worsening, ?new infection, ?different organism, ?developing deeper infection Diarrhea, better RECOMMENDATION Will continue vanco Continue Levaquin f Follow C/S results Will D/W hand surgery after surgery done to determine course of Abx Rx Monitor progress
--- NOTE | 2017-11-09 13:46 | P.PN ---
Subjective Interval history: Mrs. Su was mildly hypertensive (SBP 150's-160's) with otherwise stable vital signs overnight. Patient reports desire to leave hospital and has been walking around floor frequently. She does not report significant hand pain at this time. No chest pain, shortness of breath, or abnormal urination. Discussed T2DM and risks of infection; patient states she could not tolerate Metformin previously Physical Exam Vital signs: Vital Signs 11/08/17 15:45 11/08/17 16:00 11/08/17 20:00 Temperature 98.1 F 98.1 F Pulse Rate 73 92 H Respiratory Rate 18 17 Blood Pressure 181/82 H 148/72 H Pulse Oximetry 95 94 L 94 L 11/09/17 00:06 11/09/17 04:06 11/09/17 08:00 Temperature 98.1 F 98.2 F Pulse Rate 61 61 63 Respiratory Rate 18 18 20 Blood Pressure 153/72 H 147/67 H 161/70 H Pulse Oximetry 96 95 96 11/09/17 12:00 11/09/17 12:46 Temperature Pulse Rate 42 L 63 Respiratory Rate 18 20 Blood Pressure 154/72 H 161/70 H Pulse Oximetry 94 L 96 Intake & Output 11/08/17 11/09/17 11/09/17 18:59 06:59 18:59 Intake Total 1000 / 1000 Balance 1000 / 1000 Weight 84.8 kg Intake: IV 1000 / 1000 NS Inj 1,000 ML @ 100 mls/hr IV 1000 / 1000 .CONT .Q10H [facility] Rx#:[id number] Other: # Voids 4 # Bowel Movements 1 Narrative: General: NAD Skin: left 3rd finger covered in gauze; not visualized CV: Regular rate and rhythm w/o murmurs. Normal peripheral perfusion RESP: CTAB; normal rate ABD: Soft, nontender, nondistended MSK: No calf asymmetry or tenderness. Grossly normal ROM and motor function Neuro: Awake/alert. Grossly normal CN; grossly normal peripheral motor/sensory function PSYCH: Stable mood Results - Labs CBC & Chem 7: 11/09/17 05:35 11/09/17 05:35 Laboratory Results - last 24 hr 11/08/17 11/08/17 11/09/17 17:27 20:14 03:08 WBC RBC Hgb Hct MCV MCH MCHC RDW Plt Count MPV Neut % (Auto) Lymph % (Auto) [place] % (Auto) Eos % (Auto) Baso % (Auto) Neut # (Auto) Lymph # (Auto) [place] # (Auto) Eos # (Auto) Baso # (Auto) WBC Differential Differential Comment Sodium Potassium Chloride Carbon Dioxide Anion Gap BUN Creatinine Estimated GFR POC Glucose 191 H 192 H 221 H Random Glucose Calcium 11/09/17 11/09/17 11/09/17 05:35 05:35 07:43 WBC 6.6 RBC 4.72 Hgb 14.3 Hct 42.6 MCV 90.1 MCH 30.3 MCHC 33.6 RDW 13.3 Plt Count 126 L MPV 8.9 Neut % (Auto) 55.4 Lymph % (Auto) 28.9 [place] % (Auto) 11.4 H Eos % (Auto) 3.6 Baso % (Auto) 0.7 Neut # (Auto) 3.7 Lymph # (Auto) 1.9 [place] # (Auto) 0.8 Eos # (Auto) 0.2 Baso # (Auto) 0.0 WBC Differential . Differential Comment Auto diff final Sodium 139 Potassium 3.6 Chloride 104 Carbon Dioxide 25.7 Anion Gap 9 BUN 14 Creatinine 0.64 Estimated GFR Greater than 89 POC Glucose 186 H Random Glucose 202 H Calcium 9.0 11/09/17 11:47 WBC RBC Hgb Hct MCV MCH MCHC RDW Plt Count MPV Neut % (Auto) Lymph % (Auto) [place] % (Auto) Eos % (Auto) Baso % (Auto) Neut # (Auto) Lymph # (Auto) [place] # (Auto) Eos # (Auto) Baso # (Auto) WBC Differential Differential Comment Sodium Potassium Chloride Carbon Dioxide Anion Gap BUN Creatinine Estimated GFR POC Glucose 234 H Random Glucose Calcium Microbiology 11/07/17 13:35 Blood - Peripheral Aerobic Blood Culture - Preliminary No growth in 2 days 11/07/17 13:35 Blood - Peripheral Anaerobic Blood Culture - Preliminary No growth in 2 days 11/07/17 13:40 Blood - Peripheral Aerobic Blood Culture - Preliminary No growth in 2 days 11/07/17 13:40 Blood - Peripheral Anaerobic Blood Culture - Preliminary No growth in 2 days Assessment and Plan - Assessment (1) Septic arthritis of interphalangeal joint of finger of left hand Code(s): M00.9 - Pyogenic arthritis, unspecified Status: Acute (2) T2DM (type 2 diabetes mellitus) Code(s): E11.9 - Type 2 diabetes mellitus without complications Status: Chronic (3) HTN (hypertension) Code(s): I10 - Essential (primary) hypertension Status: Chronic (4) CAD (coronary artery disease) Code(s): I25.10 - Atherosclerotic heart disease of [place] coronary artery without angina pectoris Status: Chronic (5) Tobacco abuse Code(s): Z72.0 - Tobacco use Status: Chronic - Plan Left finger infection Impression: chronic infection of left hand 3rd digit; refractory to prior surgical intervention and IV antibiotics. Previously with MSSA. ESR 12, Cr 0.66. Blood cultures- negative x2 days Wound culture- discussed with ID, specimen now pending Hand surgery consulted -s/p arthrotomy wash of DIP joint of left hand 11/07 -ID consulted - Continue Levofloxacin -Continue Vancomycin; pharmacy consulted for dosing -[place] 5mg/325mg for pain control T2DM Impression: Unmedicated at home. -Diabetic diet -Continue low dose SS with Accuchecks (8 U sliding scale 7/4, 9 U sliding scale 7/5) -Will start Levemir 4 U HS -Will consider oral meds at discharge -A1C pending HTN Impression: Hypertensive urgency today (BP 211/93 without symptoms, no lab abnormalities) Prior HTN; reportedly normotensive often at home -Will continue PRN Vasotec -Will increase Lisinopril to 40mg daily CAD Impression: Prior stenting years prior. Not on ASA, statin, CHERELLE, or BB -Continue ASA 81mg daily -Will start CHERELLE -Will arrange outpatient f/u Tobacco abuse -Will give nicotine patch if desired DVT PPX SCD's Will hold chemical PPX since patient ambulatory Code Status: Full code Discharge Planning: Per ID and Hand surgery recommendations (4) CAD (coronary artery disease) Qualifiers: Coronary Disease-Associated Artery/Lesion type: [place] artery
[2017-11-09] MEDS ORDERED: Pharmacy Ordered Lab Info OTHER ONE (14:45)
--- NOTE | 2017-11-09 14:53 | P.PN ---
Subjective Interval history: no complains of pain no fever complaint with dressing Physical Exam Vital signs: Vital Signs 11/08/17 15:45 11/08/17 16:00 11/08/17 20:00 Temperature 98.1 F 98.1 F Pulse Rate 73 92 H Respiratory Rate 18 17 Blood Pressure 181/82 H 148/72 H Pulse Oximetry 95 94 L 94 L 11/09/17 00:06 11/09/17 04:06 11/09/17 08:00 Temperature 98.1 F 98.2 F Pulse Rate 61 61 63 Respiratory Rate 18 18 20 Blood Pressure 153/72 H 147/67 H 161/70 H Pulse Oximetry 96 95 96 11/09/17 12:00 11/09/17 12:46 11/09/17 14:37 Temperature Pulse Rate 42 L 63 Respiratory Rate 18 20 Blood Pressure 154/72 H 161/70 H Pulse Oximetry 94 L 96 95 Intake & Output 11/08/17 11/09/17 11/09/17 18:59 06:59 18:59 Intake Total 1000 / 1000 Balance 1000 / 1000 Weight 84.8 kg Intake: IV 1000 / 1000 NS Inj 1,000 ML @ 100 mls/hr IV 1000 / 1000 .CONT .Q10H [facility] Rx#:[id number] Other: # Voids 4 # Bowel Movements 1 - Detailed Upper Extremity Exam Comments: examination of the left middle finger: dressing in place packing in place surrounding swelling and erythema noted no drainage drooping of the finger noted at the DIP joint intact sensation distally cultures: pending Results - Labs CBC & Chem 7: 11/09/17 05:35 11/09/17 05:35 Laboratory Results - last 24 hr 11/08/17 11/08/17 11/09/17 17:27 20:14 03:08 WBC RBC Hgb Hct MCV MCH MCHC RDW Plt Count MPV Neut % (Auto) Lymph % (Auto) [place] % (Auto) Eos % (Auto) Baso % (Auto) Neut # (Auto) Lymph # (Auto) [place] # (Auto) Eos # (Auto) Baso # (Auto) WBC Differential Differential Comment Sodium Potassium Chloride Carbon Dioxide Anion Gap BUN Creatinine Estimated GFR POC Glucose 191 H 192 H 221 H Random Glucose Calcium 11/09/17 11/09/17 11/09/17 05:35 05:35 07:43 WBC 6.6 RBC 4.72 Hgb 14.3 Hct 42.6 MCV 90.1 MCH 30.3 MCHC 33.6 RDW 13.3 Plt Count 126 L MPV 8.9 Neut % (Auto) 55.4 Lymph % (Auto) 28.9 [place] % (Auto) 11.4 H Eos % (Auto) 3.6 Baso % (Auto) 0.7 Neut # (Auto) 3.7 Lymph # (Auto) 1.9 [place] # (Auto) 0.8 Eos # (Auto) 0.2 Baso # (Auto) 0.0 WBC Differential . Differential Comment Auto diff final Sodium 139 Potassium 3.6 Chloride 104 Carbon Dioxide 25.7 Anion Gap 9 BUN 14 Creatinine 0.64 Estimated GFR Greater than 89 POC Glucose 186 H Random Glucose 202 H Calcium 9.0 11/09/17 11:47 WBC RBC Hgb Hct MCV MCH MCHC RDW Plt Count MPV Neut % (Auto) Lymph % (Auto) [place] % (Auto) Eos % (Auto) Baso % (Auto) Neut # (Auto) Lymph # (Auto) [place] # (Auto) Eos # (Auto) Baso # (Auto) WBC Differential Differential Comment Sodium Potassium Chloride Carbon Dioxide Anion Gap BUN Creatinine Estimated GFR POC Glucose 234 H Random Glucose Calcium Microbiology 11/07/17 13:35 Blood - Peripheral Aerobic Blood Culture - Preliminary No growth in 2 days 11/07/17 13:35 Blood - Peripheral Anaerobic Blood Culture - Preliminary No growth in 2 days 11/07/17 13:40 Blood - Peripheral Aerobic Blood Culture - Preliminary No growth in 2 days 11/07/17 13:40 Blood - Peripheral Anaerobic Blood Culture - Preliminary No growth in 2 days Assessment and Plan - Assessment (1) Septic arthritis of interphalangeal joint of finger of left hand Code(s): M00.9 - Pyogenic arthritis, unspecified Status: Acute Plan: surrounding skin cleaned with alcohol wipes, packing removed. repacking carried out iodoform packing material dry dressing and a finger splint was applied. continue antibiotics based on ID recommendations hand surgery will follow.
[2017-11-09] MEDS: Vancomycin Inj 1,500 MG in Sodium Chlor 0.9% Inj 500 ML IV.SIG SCH (15:51)
[2017-11-09] MEDS: Senna/Docusate Sodium 8.6/50 MG Tablet PO SCH ×2 (16:20→20:47)
[2017-11-09 16:42] LABS: Hemoglobin A1c 13.3 % (4.3-6.0)
[2017-11-09] MEDS ORDERED: Lisinopril 10 MG Tablet PO SCH (17:06)
--- NOTE | 2017-11-09 17:37 | P.DIET ---
Nutritional Evaluation Screening comments: [facility] [place]07, pt with hx of diabetes. Pt out of room at time of visit. Left written materials and will f/u with pt.
[2017-11-09] MEDS: Lisinopril 20 MG Tablet PO SCH (20:48)
[2017-11-09] MEDS ORDERED: Insulin Detemir Inj 1,000 UNIT/10 ML Vial SQ SCH (21:00)
[2017-11-09 22:28] LABS: Baso # (Auto) 0.1 th/mm3 (0.0-0.2); Baso % (Auto) 0.9 % (0.0-2.0); Eos # (Auto) 0.2 th/mm3 (0.0-0.4); Eos % (Auto) 2.2 % (0.0-4.0); Hematocrit 45.2 % (35.0-46.0); Hemoglobin 15.7 gm/dL (11.6-15.3); Lymph # (Auto) 2.3 th/mm3 (1.0-4.8); Lymph % (Auto) 24.9 % (9.0-44.0); Mean Corpuscular HGB Conc 34.7 % (32.0-36.0); Mean Corpuscular Hemoglobin 31.4 pg (27.0-34.0); Mean Corpuscular Volume 90.6 fL (80.0-100.0); Mean Platelet Volume 9.7 fL (7.0-11.0); Mono % (Auto) 11.1 % (0.0-8.0); Neut # (Auto) 5.5 th/mm3 (1.8-7.7); Neut % (Auto) 60.9 % (16.0-70.0); Platelet Count 156 th/mm3 (150-450); Red Blood Count 4.99 mil/mm3 (4.00-5.30); Red Cell Distribution Width 13.4 % (11.6-17.2)
[2017-11-10] MEDS: Vancomycin Inj 1,250 MG in Sodium Chlor 0.9% Inj 250 ML IV.SIG SCH (02:54)
[2017-11-10] MEDS: Insulin NovoLOG Aspart Correctional Sugar Inj SQ SCH ×3 (03:13→22:42)
[2017-11-10] MEDS: Lisinopril 20 MG Tablet PO SCH (09:50)
[2017-11-10] MEDS: Senna/Docusate Sodium 8.6/50 MG Tablet PO SCH ×2 (09:50→22:43)
--- NOTE | 2017-11-10 11:31 | P.PNID ---
Subjective Remarks: Patient is a 67-year-old female, brought into the hospital for further management of her left middle finger infection. 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 Recently she had an infection on her left middle finger with some purulence, and it got worse , and she was seen by Dr. Nichols. Patient underwent surgery for the infection and this was around October 20. Culture from surgery grew methicillin sensitive staph aureus. After surgery patient was apparently started on IV Rocephin once a day. She was referred to infectious disease specialist as an outpatient and had seen her twice. The dressing changes gets done in the hand surgery office at least 2-3 times a week. He was reportedly doing well, and today she was seen in the office, and the covering hand surgeon saw the patient and there was some purulence seen so the patient was told to go to the hospital for further management. She has not had any fever chills or sweats. She has not had any rash or itching. She has been getting diarrhea since she has been on IV antibiotics. No nausea or vomiting. Infectious disease consultation has been requested to evaluate the patient. Notes reviewed Temps ok No new complaints Anxious to go home Spoke with Dr lA yesterday G/S no organism Antibiotics: vancomycin Levaquin Lines: PIV no evidence of infection Past Medical History: Anxiety Cataract Cervical stenosis of spine Osteoarth NOS-shlder Rotator cuff injury Tubal ligation status Diabetes Heart attack Hypertension Surgical History H/O cervical spine surgery History of foot surgery History of tonsillectomy H/O hand surgery Allergies/Adverse Reactions: Allergies morphine Allergy (Severe, Verified 11/07/17 12:57) RASH,ITCHING adhesive Allergy (Intermediate, Verified 11/07/17 12:57) SKIN PULLS OFF Objective Vital Signs 11/09/17 12:00 11/09/17 12:46 11/09/17 14:37 Temperature Pulse Rate 42 L 63 Respiratory Rate 18 20 Blood Pressure 154/72 H 161/70 H Pulse Oximetry 94 L 96 95 11/09/17 16:00 11/09/17 18:43 11/09/17 20:00 Temperature 98.4 F Pulse Rate 74 67 Respiratory Rate 18 18 Blood Pressure 155/84 H 151/66 H Pulse Oximetry 97 97 97 11/09/17 23:09 11/10/17 00:00 11/10/17 04:00 Temperature 97.9 F 97.8 F Pulse Rate 60 59 L Respiratory Rate 18 18 18 Blood Pressure 167/72 H 157/74 H Pulse Oximetry 96 97 Intake & Output 11/09/17 11/10/17 11/10/17 18:59 06:59 18:59 Intake Total 665 / 665 240 / 240 Output Total 500 / 500 0 / 0 Balance 165 / 165 240 / 240 Weight 84.6 kg Intake: IV 665 / 665 Levaquin 750 mg Premix Inj 150 150 / 150 ML @ 100 mls/hr IV.SIG Q24H [facility] Rx#:[id number] Vancomycin Inj 1,500 MG In NS 515 / 515 Inj 500 ML @ 250 mls/hr IV.SIG Q18H [facility] Rx#:[id number] Oral 240 / 240 Output: Urine 500 / 500 Stool 0 / 0 0 / 0 Other: Post Void Residual 0 5 # Voids 3 # Incontinent Voids 0 # Urine Diapers 0 11/07/17 13:35 Blood - Peripheral Aerobic Blood Culture - Preliminary No growth in 3 days 11/07/17 13:35 Blood - Peripheral Anaerobic Blood Culture - Preliminary No growth in 3 days 11/07/17 13:40 Blood - Peripheral Aerobic Blood Culture - Preliminary No growth in 3 days 11/07/17 13:40 Blood - Peripheral Anaerobic Blood Culture - Preliminary No growth in 3 days 11/07/17 17:48 Abscess - Finger Gram Stain - Final 11/07/17 17:48 Abscess - Finger Wound Culture - Pending Lab - Hematology Results 11/09/17 11/09/17 05:35 20:56 WBC 6.6 9.0 RBC 4.72 4.99 Hgb 14.3 15.7 H Hct 42.6 45.2 MCV 90.1 90.6 MCH 30.3 31.4 MCHC 33.6 34.7 RDW 13.3 13.4 Plt Count 126 L 156 MPV 8.9 9.7 Neut % (Auto) 55.4 60.9 Lymph % (Auto) 28.9 24.9 [place] % (Auto) 11.4 H 11.1 H Eos % (Auto) 3.6 2.2 Baso % (Auto) 0.7 0.9 Neut # (Auto) 3.7 5.5 Lymph # (Auto) 1.9 2.3 [place] # (Auto) 0.8 1.0 H Eos # (Auto) 0.2 0.2 Baso # (Auto) 0.0 0.1 WBC Differential . . Differential Comment Auto diff final Auto diff final Lab - Chemistry Results 11/08/17 11/08/17 11/08/17 12:05 17:27 20:14 Sodium Potassium Chloride Carbon Dioxide Anion Gap BUN Creatinine Estimated GFR POC Glucose 221 H 191 H 192 H Random Glucose Hemoglobin A1c Calcium 11/09/17 11/09/17 11/09/17 03:08 05:35 05:35 Sodium 139 Potassium 3.6 Chloride 104 Carbon Dioxide 25.7 Anion Gap 9 BUN 14 Creatinine 0.64 Estimated GFR Greater than 89 POC Glucose 221 H Random Glucose 202 H Hemoglobin A1c 13.3 H Calcium 9.0 11/09/17 11/09/17 11/09/17 07:43 11:47 16:57 Sodium Potassium Chloride Carbon Dioxide Anion Gap BUN Creatinine Estimated GFR POC Glucose 186 H 234 H 298 H Random Glucose Hemoglobin A1c Calcium 11/09/17 11/10/17 11/10/17 20:21 03:07 08:29 Sodium Potassium Chloride Carbon Dioxide Anion Gap BUN Creatinine Estimated GFR POC Glucose 243 H 208 H 224 H Random Glucose Hemoglobin A1c Calcium Imaging: ITS Impressions Finger X-Ray 11/07/17 13:17 CONCLUSION: Soft tissue swelling and possible subluxation of the PIP joint Physical Exam: Physical Examination GENERAL: awake and alert, not in respiratory distress. SKIN: Cool and dry. No generalized rash HEAD: Atraumatic. Normocephalic. No temporal wasting, or tenderness. EYES: [place] conjunctiva. No petechia or hemorrhage. Pupils equal, round and reactive to light. Extraocular movements full and intact. No scleral icterus. No injection or drainage. EARS, NOSE AND THROAT: Nose without bleeding or purulent nasal discharge. No sinus tenderness. Mucous membranes pink and moist. No oral lesions noted. No exudate. No oral thrush. NECK: Trachea midline. Supple and not tender, no meningeal signs CARDIOVASCULAR: Regular rate and rhythm. No murmurs, rubs or gallops heard RESPIRATORY: Clear to auscultation. Breath sounds equal bilaterally. No rales , wheezing or rhonchi ABDOMEN: Soft, non-tender, nondistended. Bowel sounds present and normoactive. No guarding. No rebound. No organomegaly. EXTREMITIES: No clubbing, cyanosis, or edema. L hand - LMF with dry intact dressing NEUROLOGICAL: Grossly non-focal PSYCHIATRIC: Normal affect, calm and cooperative. LINE: No evidence of infection Assessment and Plan - Plan IMPRESSION LMF infection, septic joint - S/P I and D - previous surgery done and C/S MSSA - ?worsening, ?new infection, ?different organism, ?developing deeper infection Diarrhea, better RECOMMENDATION Will continue vanco Continue Levaquin PICC Follow C/S results - if C/S negative, will use IV Ance and Rx 3 weeks IV Abx - if C/S (+), Rx with appropriate Abx based on C/S results and Rx 3 weeks Monitor progress Explained plan to patient
--- NOTE | 2017-11-10 14:18 | P.PN ---
Subjective Interval history: Mrs. Su was afebrile with mild HTN overnight (SBP ~150's-160's). Patient denies acute complaints but reports desire to leave the hospital quickly. Patient denies any pain in her hand. Physical Exam Vital signs: Vital Signs 11/09/17 14:37 11/09/17 16:00 11/09/17 18:43 Temperature Pulse Rate 74 Respiratory Rate 18 Blood Pressure 155/84 H Pulse Oximetry 95 97 97 11/09/17 20:00 11/09/17 23:09 11/10/17 00:00 Temperature 98.4 F 97.9 F Pulse Rate 67 60 Respiratory Rate 18 18 18 Blood Pressure 151/66 H 167/72 H Pulse Oximetry 97 96 11/10/17 04:00 11/10/17 12:00 11/10/17 12:03 Temperature 97.8 F 97.9 F Pulse Rate 59 L 64 Respiratory Rate 18 16 Blood Pressure 157/74 H 162/74 H Pulse Oximetry 97 96 97 Intake & Output 11/09/17 11/10/17 11/10/17 18:59 06:59 18:59 Intake Total 665 / 665 240 / 240 262.5 / 262.5 Output Total 500 / 500 0 / 0 Balance 165 / 165 240 / 240 262.5 / 262.5 Weight 84.6 kg Intake: IV 665 / 665 262.5 / 262.5 Levaquin 750 mg Premix Inj 150 150 / 150 ML @ 100 mls/hr IV.SIG Q24H [facility] Rx#:[id number] Vancomycin Inj 1,250 MG In NS 262.5 / 262.5 Inj 250 ML @ 250 mls/hr IV.SIG Q12H [facility] Rx#:[id number] Vancomycin Inj 1,500 MG In NS 515 / 515 Inj 500 ML @ 250 mls/hr IV.SIG Q18H [facility] Rx#:[id number] Oral 240 / 240 Output: Urine 500 / 500 Stool 0 / 0 0 / 0 Other: Post Void Residual 0 5 # Voids 3 # Incontinent Voids 0 # Urine Diapers 0 Narrative: General: NAD Skin: left 3rd finger covered in gauze; not visualized CV: Regular rate and rhythm w/o murmurs. Normal peripheral perfusion RESP: CTAB; normal rate ABD: Soft, nontender, nondistended MSK: No calf asymmetry or tenderness. Grossly normal ROM and motor function Neuro: Awake/alert. Grossly normal CN; grossly normal peripheral motor/sensory function PSYCH: Stable mood Results - Labs CBC & Chem 7: 11/10/17 14:30 11/10/17 14:30 Laboratory Results - last 24 hr 11/09/17 11/09/17 11/09/17 05:35 14:50 16:57 WBC RBC Hgb Hct MCV MCH MCHC RDW Plt Count MPV Neut % (Auto) Lymph % (Auto) [place] % (Auto) Eos % (Auto) Baso % (Auto) Neut # (Auto) Lymph # (Auto) [place] # (Auto) Eos # (Auto) Baso # (Auto) WBC Differential Differential Comment POC Glucose 298 H Hemoglobin A1c 13.3 H Vancomycin Trough 9.2 11/09/17 11/09/17 11/10/17 20:21 20:56 03:07 WBC 9.0 RBC 4.99 Hgb 15.7 H Hct 45.2 MCV 90.6 MCH 31.4 MCHC 34.7 RDW 13.4 Plt Count 156 MPV 9.7 Neut % (Auto) 60.9 Lymph % (Auto) 24.9 [place] % (Auto) 11.1 H Eos % (Auto) 2.2 Baso % (Auto) 0.9 Neut # (Auto) 5.5 Lymph # (Auto) 2.3 [place] # (Auto) 1.0 H Eos # (Auto) 0.2 Baso # (Auto) 0.1 WBC Differential . Differential Comment Auto diff final POC Glucose 243 H 208 H Hemoglobin A1c Vancomycin Trough 11/10/17 11/10/17 08:29 13:04 WBC RBC Hgb Hct MCV MCH MCHC RDW Plt Count MPV Neut % (Auto) Lymph % (Auto) [place] % (Auto) Eos % (Auto) Baso % (Auto) Neut # (Auto) Lymph # (Auto) [place] # (Auto) Eos # (Auto) Baso # (Auto) WBC Differential Differential Comment POC Glucose 224 H 239 H Hemoglobin A1c Vancomycin Trough Microbiology 11/07/17 17:48 Abscess - Finger Gram Stain - Final 11/07/17 17:48 Abscess - Finger Wound Culture - Preliminary No growth in 24 hours 11/07/17 13:35 Blood - Peripheral Aerobic Blood Culture - Preliminary No growth in 3 days 11/07/17 13:35 Blood - Peripheral Anaerobic Blood Culture - Preliminary No growth in 3 days 11/07/17 13:40 Blood - Peripheral Aerobic Blood Culture - Preliminary No growth in 3 days 11/07/17 13:40 Blood - Peripheral Anaerobic Blood Culture - Preliminary No growth in 3 days Assessment and Plan - Assessment (1) Septic arthritis of interphalangeal joint of finger of left hand Code(s): M00.9 - Pyogenic arthritis, unspecified Status: Acute (2) T2DM (type 2 diabetes mellitus) Code(s): E11.9 - Type 2 diabetes mellitus without complications Status: Chronic (3) HTN (hypertension) Code(s): I10 - Essential (primary) hypertension Status: Chronic (4) CAD (coronary artery disease) Code(s): I25.10 - Atherosclerotic heart disease of [place] coronary artery without angina pectoris Status: Chronic (5) Tobacco abuse Code(s): Z72.0 - Tobacco use Status: Chronic - Plan Left finger infection Impression: chronic infection of left hand 3rd digit; refractory to prior surgical intervention and IV antibiotics. Previously with MSSA. ESR 12, Cr 0.66. Blood cultures- negative x3 days Wound culture- negative x1 day Hand surgery consulted -s/p arthrotomy wash of DIP joint of left hand 11/07 -ID consulted - Continue Levofloxacin -Continue Vancomycin; pharmacy consulted for dosing -If negative, Ancef x3 weeks; if positive, appropriate antibiotics x3 weeks -[place] 5mg/325mg for pain control T2DM Impression: Unmedicated at home. -Diabetic diet -Continue low dose SS with Accuchecks (8 U sliding scale 7/4, 9 U sliding scale 7/5) -Will increase Levemir to 6 U HS -Will consider oral meds at discharge -A1C pending HTN Impression: Hypertensive urgency today (BP 211/93 without symptoms, no lab abnormalities) Prior HTN; reportedly normotensive often at home -Will continue PRN Vasotec -Will increase Lisinopril to 40mg daily CAD Impression: Prior stenting years prior. Not on ASA, statin, CHERELLE, or BB -Continue ASA 81mg daily -Will start CHERELLE -Will arrange outpatient f/u Tobacco abuse -Will give nicotine patch if desired DVT PPX SCD's Will hold chemical PPX since patient ambulatory Discharge Planning: Per ID and Hand surgery recommendations (3) HTN (hypertension) Qualifiers: Hypertension type: essential hypertension Qualified Code(s): I10 - Essential (primary) hypertension (4) CAD (coronary artery disease) Qualifiers: Coronary Disease-Associated Artery/Lesion type: [place] artery
--- NOTE | 2017-11-10 14:18 | P.DCO ---
- Home Health Nursing Order: Medical education, Signs/symptoms of disease process, IV medication administration - Certification I have seen patient Angeles Su on 11/10/17. My clinical findings support the need for the requested home health care services because: Infection with risk of complications I certify that my clinical findings support that this patient is homebound because: Unsafe to leave home unassisted (needs daily antibiotics)
[2017-11-10 15:16] LABS: Baso % (Auto) 0.6 % (0.0-2.0); Eos # (Auto) 0.2 th/mm3 (0.0-0.4); Eos % (Auto) 2.3 % (0.0-4.0); Hematocrit 46.4 % (35.0-46.0); Hemoglobin 15.5 gm/dL (11.6-15.3); Lymph # (Auto) 1.8 th/mm3 (1.0-4.8); Lymph % (Auto) 22.1 % (9.0-44.0); Mean Corpuscular HGB Conc 33.5 % (32.0-36.0); Mean Corpuscular Volume 89.4 fL (80.0-100.0); Mean Platelet Volume 9.1 fL (7.0-11.0); Mono # (Auto) 0.9 th/mm3 (0.0-0.9); Neut # (Auto) 5.1 th/mm3 (1.8-7.7); Platelet Count 158 th/mm3 (150-450); Red Blood Count 5.19 mil/mm3 (4.00-5.30); Red Cell Distribution Width 13.6 % (11.6-17.2)
--- NOTE | 2017-11-10 15:28 | P.DIET ---
Nutritional Evaluation Type of nutrition evaluation: follow-up Screening comments: [facility] – [place] for diet education 11/07 Subjective Subjective Comments: Pt states she does not test her blood sugar at home and she stopped taking her medication many months ago. She states she has lost 50-60 lbs and she thought that would take care of her diabetes. Pt does not wish for any diet education at this time. Written materials were left in the room.
[2017-11-10 15:36] LABS: Calcium 9.2 mg/dL (8.5-10.1); Carbon Dioxide 29.5 meq/L (21.0-32.0)
--- NOTE | 2017-11-10 17:41 | P.PN ---
Subjective Interval history: no pain no fever complaint with dressing Physical Exam Vital signs: Vital Signs 11/09/17 18:43 11/09/17 20:00 11/09/17 23:09 Temperature 98.4 F Pulse Rate 67 Respiratory Rate 18 18 Blood Pressure 151/66 H Pulse Oximetry 97 97 11/10/17 00:00 11/10/17 04:00 11/10/17 12:00 Temperature 97.9 F 97.8 F 97.9 F Pulse Rate 60 59 L 64 Respiratory Rate 18 18 16 Blood Pressure 167/72 H 157/74 H 162/74 H Pulse Oximetry 96 97 96 11/10/17 12:03 11/10/17 16:00 11/10/17 17:21 Temperature 97.6 F Pulse Rate 70 Respiratory Rate 18 Blood Pressure 159/110 H Pulse Oximetry 97 96 96 11/10/17 17:23 Temperature Pulse Rate Respiratory Rate Blood Pressure Pulse Oximetry 96 Intake & Output 11/09/17 11/10/17 11/10/17 18:59 06:59 18:59 Intake Total 665 / 665 240 / 240 262.5 / 262.5 Output Total 500 / 500 0 / 0 Balance 165 / 165 240 / 240 262.5 / 262.5 Weight 84.6 kg Intake: IV 665 / 665 262.5 / 262.5 Levaquin 750 mg Premix Inj 150 150 / 150 ML @ 100 mls/hr IV.SIG Q24H [facility] Rx#:[id number] Vancomycin Inj 1,250 MG In NS 262.5 / 262.5 Inj 250 ML @ 250 mls/hr IV.SIG Q12H [facility] Rx#:[id number] Vancomycin Inj 1,500 MG In NS 515 / 515 Inj 500 ML @ 250 mls/hr IV.SIG Q18H [facility] Rx#:[id number] Oral 240 / 240 Output: Urine 500 / 500 Stool 0 / 0 0 / 0 Other: Post Void Residual 0 5 # Voids 3 # Incontinent Voids 0 # Urine Diapers 0 Narrative: examination of left middle finger: dressing and packing in place decreased swelling and erythema no drainage drooping at the DIP joint noted stiffness at PIP joint cultures: negative to date gram stain: negative Results - Labs CBC & Chem 7: 11/10/17 14:30 11/10/17 14:30 Laboratory Results - last 24 hr 11/09/17 11/09/1718 05:35 20:21 20:56 WBC 9.0 RBC 4.99 Hgb 15.7 H Hct 45.2 MCV 90.6 MCH 31.4 MCHC 34.7 RDW 13.4 Plt Count 156 MPV 9.7 Neut % (Auto) 60.9 Lymph % (Auto) 24.9 [place] % (Auto) 11.1 H Eos % (Auto) 2.2 Baso % (Auto) 0.9 Neut # (Auto) 5.5 Lymph # (Auto) 2.3 [place] # (Auto) 1.0 H Eos # (Auto) 0.2 Baso # (Auto) 0.1 WBC Differential . Differential Comment Auto diff final Sodium Potassium Chloride Carbon Dioxide Anion Gap BUN Creatinine Estimated GFR POC Glucose 243 H Random Glucose Hemoglobin A1c 13.3 H Calcium 11/10/17 11/10/17 11/10/17 03:07 08:29 13:04 WBC RBC Hgb Hct MCV MCH MCHC RDW Plt Count MPV Neut % (Auto) Lymph % (Auto) [place] % (Auto) Eos % (Auto) Baso % (Auto) Neut # (Auto) Lymph # (Auto) [place] # (Auto) Eos # (Auto) Baso # (Auto) WBC Differential Differential Comment Sodium Potassium Chloride Carbon Dioxide Anion Gap BUN Creatinine Estimated GFR POC Glucose 208 H 224 H 239 H Random Glucose Hemoglobin A1c Calcium 11/10/17 11/10/17 11/10/17 14:30 14:30 16:48 WBC 8.0 RBC 5.19 Hgb 15.5 H Hct 46.4 H MCV 89.4 MCH 30.0 MCHC 33.5 RDW 13.6 Plt Count 158 MPV 9.1 Neut % (Auto) 64.0 Lymph % (Auto) 22.1 [place] % (Auto) 11.0 H Eos % (Auto) 2.3 Baso % (Auto) 0.6 Neut # (Auto) 5.1 Lymph # (Auto) 1.8 [place] # (Auto) 0.9 Eos # (Auto) 0.2 Baso # (Auto) 0.0 WBC Differential . Differential Comment Auto diff final Sodium 139 Potassium 4.0 Chloride 102 Carbon Dioxide 29.5 Anion Gap 8 BUN 20 H Creatinine 0.79 Estimated GFR 72 L POC Glucose 251 H Random Glucose 245 H Hemoglobin A1c Calcium 9.2 Microbiology 11/07/17 17:48 Abscess - Finger Gram Stain - Final 11/07/17 17:48 Abscess - Finger Wound Culture - Preliminary No growth in 24 hours 11/07/17 13:35 Blood - Peripheral Aerobic Blood Culture - Preliminary No growth in 3 days 11/07/17 13:35 Blood - Peripheral Anaerobic Blood Culture - Preliminary No growth in 3 days 11/07/17 13:40 Blood - Peripheral Aerobic Blood Culture - Preliminary No growth in 3 days 11/07/17 13:40 Blood - Peripheral Anaerobic Blood Culture - Preliminary No growth in 3 days Assessment and Plan - Assessment (1) Septic arthritis of interphalangeal joint of finger of left hand Code(s): M00.9 - Pyogenic arthritis, unspecified Status: Acute Plan: surrounding skin cleaned with alcohol wipes, packing removed. dry dressing and a finger splint was applied. continue antibiotics based on ID recommendations hand surgery will follow.
[2017-11-10] MEDS ORDERED: Insulin Detemir Inj 1,000 UNIT/10 ML Vial SQ SCH (21:04)
[2017-11-10] MEDS: Temazepam 15 MG Capsule PO PRN (22:45)
[2017-11-11] MEDS ORDERED: Pharmacy Ordered Lab Info OTHER ONE (02:45)
[2017-11-11] MEDS: Insulin NovoLOG Aspart Correctional Sugar Inj SQ SCH ×5 (03:00→21:59)
[2017-11-11] MEDS: Vancomycin Inj 1,250 MG in Sodium Chlor 0.9% Inj 250 ML IV.SIG SCH ×3 (03:24→15:52)
[2017-11-11] MEDS: Senna/Docusate Sodium 8.6/50 MG Tablet PO SCH ×2 (09:13→22:00)
[2017-11-11] MEDS: Lisinopril 20 MG Tablet PO SCH (09:14)
--- NOTE | 2017-11-11 13:22 | P.PN ---
Subjective Interval history: 67 years old right handed female patient no complains of pain or fever wanting to go home Physical Exam Vital signs: Vital Signs 11/10/17 16:00 11/10/17 17:21 11/10/17 17:23 Temperature 97.6 F Pulse Rate 70 Respiratory Rate 18 Blood Pressure 159/110 H Pulse Oximetry 96 96 96 11/10/17 22:00 11/11/17 00:00 11/11/17 04:00 Temperature 98.2 F 97.8 F 97.4 F L Pulse Rate 69 70 54 L Respiratory Rate 16 15 18 Blood Pressure 141/90 H 130/69 137/72 Pulse Oximetry 95 95 Intake & Output 11/10/17 11/11/17 11/11/17 18:59 06:59 18:59 Intake Total 2062.5 / 2062.5 262.5 / 262.5 Balance 2062.5 / 2062.5 262.5 / 262.5 Weight 80.9 kg Intake: IV 262.5 / 262.5 262.5 / 262.5 Vancomycin Inj 1,250 MG In NS 262.5 / 262.5 262.5 / 262.5 Inj 250 ML @ 250 mls/hr IV.SIG Q12H [facility] Rx#:[id number] Oral 1800 / 1800 Other: # Voids 5 Date of Last Bowel Movement 11/10/17 11/10/17 # Bowel Movements 2 - Constitutional no acute distress - Routine HEENT Exam Head: Present: normocephalic Eye: Present: PERRL ENT: Present: mucous membranes moist - Routine Neck Exam Present: supple - Routine Respiratory Exam Present: CTA bilaterally - Routine Cardiovascular Exam Present: RRR - Routine Abdominal Exam Present: soft, normoactive bowel sounds - Routine Extremities Exam Comments: Left middle finger - dressing in place, posterior splint in place good radial pulses Results - Labs CBC & Chem 7: 11/10/17 14:30 11/10/17 14:30 Laboratory Results - last 24 hr 11/10/17 11/10/17 11/10/17 13:04 14:30 14:30 WBC 8.0 RBC 5.19 Hgb 15.5 H Hct 46.4 H MCV 89.4 MCH 30.0 MCHC 33.5 RDW 13.6 Plt Count 158 MPV 9.1 Neut % (Auto) 64.0 Lymph % (Auto) 22.1 [place] % (Auto) 11.0 H Eos % (Auto) 2.3 Baso % (Auto) 0.6 Neut # (Auto) 5.1 Lymph # (Auto) 1.8 [place] # (Auto) 0.9 Eos # (Auto) 0.2 Baso # (Auto) 0.0 WBC Differential . Differential Comment Auto diff final Sodium 139 Potassium 4.0 Chloride 102 Carbon Dioxide 29.5 Anion Gap 8 BUN 20 H Creatinine 0.79 Estimated GFR 72 L POC Glucose 239 H Random Glucose 245 H Calcium 9.2 Vancomycin Trough 11/10/17 11/10/17 11/11/17 16:48 22:14 03:10 WBC RBC Hgb Hct MCV MCH MCHC RDW Plt Count MPV Neut % (Auto) Lymph % (Auto) [place] % (Auto) Eos % (Auto) Baso % (Auto) Neut # (Auto) Lymph # (Auto) [place] # (Auto) Eos # (Auto) Baso # (Auto) WBC Differential Differential Comment Sodium Potassium Chloride Carbon Dioxide Anion Gap BUN Creatinine Estimated GFR POC Glucose 251 H 223 H Random Glucose Calcium Vancomycin Trough 13.8 H 11/11/17 11/11/17 09:04 12:38 WBC RBC Hgb Hct MCV MCH MCHC RDW Plt Count MPV Neut % (Auto) Lymph % (Auto) [place] % (Auto) Eos % (Auto) Baso % (Auto) Neut # (Auto) Lymph # (Auto) [place] # (Auto) Eos # (Auto) Baso # (Auto) WBC Differential Differential Comment Sodium Potassium Chloride Carbon Dioxide Anion Gap BUN Creatinine Estimated GFR POC Glucose 234 H 288 H Random Glucose Calcium Vancomycin Trough Microbiology 11/07/17 17:48 Abscess - Finger Gram Stain - Final 11/07/17 17:48 Abscess - Finger Wound Culture - Preliminary No growth in 48 hours 11/07/17 13:35 Blood - Peripheral Aerobic Blood Culture - Preliminary No growth in 4 days 11/07/17 13:35 Blood - Peripheral Anaerobic Blood Culture - Preliminary No growth in 4 days 11/07/17 13:40 Blood - Peripheral Aerobic Blood Culture - Preliminary No growth in 4 days 11/07/17 13:40 Blood - Peripheral Anaerobic Blood Culture - Preliminary No growth in 4 days Assessment and Plan - Assessment (1) Septic arthritis of interphalangeal joint of finger of left hand Code(s): M00.9 - Pyogenic arthritis, unspecified Status: Acute (2) T2DM (type 2 diabetes mellitus) Code(s): E11.9 - Type 2 diabetes mellitus without complications Status: Chronic (3) HTN (hypertension) Code(s): I10 - Essential (primary) hypertension Status: Chronic (4) CAD (coronary artery disease) Code(s): I25.10 - Atherosclerotic heart disease of [place] coronary artery without angina pectoris Status: Chronic (5) Tobacco abuse Code(s): Z72.0 - Tobacco use Status: Chronic - Plan 67 years old female Left MF pyogenic arthritis- Impression: chronic infection of left hand 3rd digit; refractory to prior surgical intervention and IV antibiotics. Previously with MSSA. ESR 12, Cr 0.66. Blood cultures- negative so far Wound culture- negative so far Hand surgery ff -s/p arthrotomy wash of DIP joint of left hand / -ID ff- per recommendations - Continue Levofloxacin + Vancomycin; pharmacy consulted for dosing -If negative, Ancef x3 weeks - will likely need PICC- get Vascular access team consult -[place] 5mg/325mg for pain control T2DM- uncontrolled A1C- 13. Impression: Unmedicated at home.- in the past was on Novopen- but DC herself from this -Diabetic diet -Continue low dose SS with Accuchecks (8 U sliding scale 7/4, 9 U sliding scale 7/5) -Will increase Levemir to bid -discussed with her- was on Metformin- adverse GI reaction- unable to tolerate this HTN- improved Impression: Hypertensive urgency today (BP 211/93 without symptoms, no lab abnormalities) Prior HTN; reportedly normotensive often at home -Will continue PRN Vasotec - patient implies that she has White coat hyeprtesnion - Lisinopril to 40mg daily CAD Impression: Prior stenting years prior. Not on ASA, statin, CHERELLE, or BB -Continue ASA 81mg daily -CHERELLE -Will arrange outpatient f/u Tobacco abuse -Will give nicotine patch if desired DVT PPX SCD's Will hold chemical PPX since patient ambulatory Discharge Planning: Per ID and Hand surgery recommendations Long discussion with her- regartding her A1C and blood sugars- she insist that she felt better off all medications Reinforced compian ce and OP ff up with PCP (3) HTN (hypertension) Qualifiers: Hypertension type: essential hypertension Qualified Code(s): I10 - Essential (primary) hypertension (4) CAD (coronary artery disease) Qualifiers: Coronary Disease-Associated Artery/Lesion type: [place] artery (3) HTN (hypertension) Qualifiers: Hypertension type: essential hypertension Qualified Code(s): I10 - Essential (primary) hypertension (4) CAD (coronary artery disease) Qualifiers: Coronary Disease-Associated Artery/Lesion type: [place] artery
[2017-11-11] MEDS: Insulin Detemir Inj 1,000 UNIT/10 ML Vial SQ SCH (22:00)
[2017-11-12] MEDS: Vancomycin Inj 1,250 MG in Sodium Chlor 0.9% Inj 250 ML IV.SIG SCH (02:42)
[2017-11-12] MEDS: Insulin NovoLOG Aspart Correctional Sugar Inj SQ SCH ×5 (06:28→20:35)
[2017-11-12] MEDS: Lisinopril 20 MG Tablet PO SCH (09:16)
[2017-11-12] MEDS: Insulin Detemir Inj 1,000 UNIT/10 ML Vial SQ SCH ×2 (09:17→20:34)
[2017-11-12] MEDS: Senna/Docusate Sodium 8.6/50 MG Tablet PO SCH ×2 (09:17→20:37)
--- NOTE | 2017-11-12 11:33 | P.PN ---
Subjective Interval history: no complaints no fever no pain Physical Exam Vital signs: Vital Signs 11/11/17 12:00 11/11/17 13:56 11/11/17 16:00 Temperature 97.7 F 98.2 F 98.2 F Pulse Rate 59 L 72 65 Respiratory Rate 16 16 16 Blood Pressure 142/70 H 147/68 H 159/71 H Pulse Oximetry 96 97 95 11/11/17 20:00 11/12/17 00:00 11/12/17 04:00 Temperature 98.1 F 98.3 F 97.7 F Pulse Rate 68 65 60 Respiratory Rate 21 17 16 Blood Pressure 133/77 169/72 H 137/65 Pulse Oximetry 96 95 96 11/12/17 08:00 Temperature 97.6 F Pulse Rate 59 L Respiratory Rate 16 Blood Pressure 149/67 H Pulse Oximetry 95 Intake & Output 11/11/17 11/12/17 11/12/17 18:59 06:59 18:59 Intake Total 892.5 / 892.5 90 / 90 Balance 892.5 / 892.5 90 / 90 Weight 79.8 kg Intake: IV 412.5 / 412.5 Levaquin 750 mg Premix Inj 150 150 / 150 ML @ 100 mls/hr IV.SIG Q24H [facility] Rx#:[id number] Vancomycin Inj 1,250 MG In NS 262.5 / 262.5 Inj 250 ML @ 250 mls/hr IV.SIG Q12H [facility] Rx#:[id number] Oral 480 / 480 90 / 90 Other: # Voids 3 3 # Bowel Movements 1 Narrative: General: NAD Left MF- splint and dressing intact, good radial pulses CV: Regular rate and rhythm w/o murmurs. Normal peripheral perfusion RESP: CTAB; normal rate ABD: Soft, nontender, nondistended MSK: No calf asymmetry or tenderness. Grossly normal ROM and motor function Neuro: Awake/alert. Grossly normal CN; grossly normal peripheral motor/sensory function PSYCH:d/w her need to stay Results - Labs CBC & Chem 7: 11/10/17 14:30 11/12/17 07:20 Laboratory Results - last 24 hr 11/11/17 11/11/17 11/11/17 12:38 16:41 20:16 Creatinine Estimated GFR POC Glucose 288 H 211 H 157 H 11/12/17 11/12/17 11/12/17 06:15 07:20 07:59 Creatinine 0.67 Estimated GFR 87 L POC Glucose 221 H 217 H Microbiology 11/07/17 13:35 Blood - Peripheral Aerobic Blood Culture - Final No growth in 5 days 11/07/17 13:35 Blood - Peripheral Anaerobic Blood Culture - Final No growth in 5 days 11/07/17 13:40 Blood - Peripheral Aerobic Blood Culture - Final No growth in 5 days 11/07/17 13:40 Blood - Peripheral Anaerobic Blood Culture - Final No growth in 5 days 11/07/17 17:48 Abscess - Finger Gram Stain - Final 11/07/17 17:48 Abscess - Finger Wound Culture - Final No growth in 72 hours (aerobically and anaerobically ) Assessment and Plan - Assessment (1) Septic arthritis of interphalangeal joint of finger of left hand Code(s): M00.9 - Pyogenic arthritis, unspecified Status: Acute (2) T2DM (type 2 diabetes mellitus) Code(s): E11.9 - Type 2 diabetes mellitus without complications Status: Chronic (3) HTN (hypertension) Code(s): I10 - Essential (primary) hypertension Status: Chronic (4) CAD (coronary artery disease) Code(s): I25.10 - Atherosclerotic heart disease of [place] coronary artery without angina pectoris Status: Chronic (5) Tobacco abuse Code(s): Z72.0 - Tobacco use Status: Chronic - Plan 67 years old female Left MF pyogenic arthritis- Impression: chronic infection of left hand 3rd digit; refractory to prior surgical intervention and IV antibiotics. Previously with MSSA. ESR 12, Cr 0.66. Blood cultures- negative so far Wound culture- negative so far Hand surgery ff -s/p arthrotomy wash of DIP joint of left hand 11/07 -ID ff- per recommendations DC Levofloxacin + Vancomycin; change to IV ancef 1 gm q 8 per ID recommendation start 11/13 will likely need PICC- patient states she has experience with IV OP antiibotics- but was on peripheral IV and changed periodically -[place] 5mg/325mg for pain control T2DM- uncontrolled A1C- 13. Impression: Unmedicated at home.- in the past was on Novopen- but DC herself from this -Diabetic diet -Continue low dose SS with Accuchecks (8 U sliding scale 7/4, 9 U sliding scale /) -Increasedd Levemir to bid 10 units bid -discussed with her- was on Metformin- adverse GI reaction- unable to tolerate this HTN- improved Impression: Hypertensive urgency today (BP 211/93 without symptoms, no lab abnormalities) Prior HTN; reportedly normotensive often at home -Will continue PRN Vasotec - patient implies that she has White coat hyeprtesnion - Lisinopril to 40mg daily CAD Impression: Prior stenting years prior. Not on ASA, statin, CHERELLE, or BB -Continue ASA 81mg daily -CHERELLE -Will arrange outpatient f/u Tobacco abuse -Will give nicotine patch if desired DVT PPX SCD's Will hold chemical PPX since patient ambulatory Discharge Planning: Per ID and Hand surgery recommendations Long discussion with her- regartding her A1C and blood sugars- she insist that she felt better off all medications Reinforced compian ce and OP ff up with PCP (3) HTN (hypertension) Qualifiers: Hypertension type: essential hypertension Qualified Code(s): I10 - Essential (primary) hypertension (4) CAD (coronary artery disease) Qualifiers: Coronary Disease-Associated Artery/Lesion type: [place] artery (3) HTN (hypertension) Qualifiers: Hypertension type: essential hypertension Qualified Code(s): I10 - Essential (primary) hypertension (4) CAD (coronary artery disease) Qualifiers: Coronary Disease-Associated Artery/Lesion type: [place] artery
[2017-11-12] MEDS ORDERED: Pharmacy Ordered Lab Info OTHER ONE (14:45)
--- NOTE | 2017-11-12 18:08 | P.PNOP ---
Subjective Interval history: Patient reports pain controlled. Patient asking to be discharged Physical Exam Vital signs: Vital Signs 11/11/17 20:00 11/12/17 00:00 11/12/17 04:00 Temperature 98.1 F 98.3 F 97.7 F Pulse Rate 68 65 60 Respiratory Rate 21 17 16 Blood Pressure 133/77 169/72 H 137/65 Pulse Oximetry 96 95 96 11/12/17 08:00 11/12/17 12:00 Temperature 97.6 F 97.9 F Pulse Rate 59 L 74 Respiratory Rate 16 16 Blood Pressure 149/67 H 175/77 H Pulse Oximetry 95 100 Intake & Output 11/11/17 11/12/17 11/12/17 18:59 06:59 18:59 Intake Total 892.5 / 892.5 90 / 90 Balance 892.5 / 892.5 90 / 90 Weight 79.8 kg Intake: IV 412.5 / 412.5 Levaquin 750 mg Premix Inj 150 150 / 150 ML @ 100 mls/hr IV.SIG Q24H [facility] Rx#:[id number] Vancomycin Inj 1,250 MG In NS 262.5 / 262.5 Inj 250 ML @ 250 mls/hr IV.SIG Q12H [facility] Rx#:[id number] Oral 480 / 480 90 / 90 Other: # Voids 3 3 # Bowel Movements 1 - Routine Extremities Exam Comments: Dressing removed. Sutures in place with mild erythema without drainage. Extensor lag approximately 10 degrees, sitlt radial and ulnar sides finger, <2 sec capillary refill Results - Labs CBC & Chem 7: 11/10/17 14:30 11/12/17 07:20 Laboratory Results - last 24 hr 11/11/17 11/12/17 11/12/17 20:16 06:15 07:20 Creatinine 0.67 Estimated GFR 87 L POC Glucose 157 H 221 H 11/12/17 11/12/17 11/12/17 07:59 11:30 17:31 Creatinine Estimated GFR POC Glucose 217 H 180 H 223 H Microbiology 11/07/17 13:35 Blood - Peripheral Aerobic Blood Culture - Final No growth in 5 days 11/07/17 13:35 Blood - Peripheral Anaerobic Blood Culture - Final No growth in 5 days 11/07/17 13:40 Blood - Peripheral Aerobic Blood Culture - Final No growth in 5 days 07/03/18 13:40 Blood - Peripheral Anaerobic Blood Culture - Final No growth in 5 days 11/07/17 17:48 Abscess - Finger Gram Stain - Final 11/07/17 17:48 Abscess - Finger Wound Culture - Final No growth in 72 hours (aerobically and anaerobically ) Assessment and Plan - Problem List (1) Septic arthritis of interphalangeal joint of finger of left hand Code(s): M00.9 - Pyogenic arthritis, unspecified Status: Acute - Assessment and Plan [id number] s/p repeat I&D left middle finger DIP joint -Cleared for discharge by hand surgery once PICC line placed and IV Ab arranged -Will followup in office this week
[2017-11-13] MEDS: Insulin NovoLOG Aspart Correctional Sugar Inj SQ SCH ×3 (03:54→13:30)
[2017-11-13] MEDS: Lisinopril 20 MG Tablet PO SCH (09:22)
[2017-11-13] MEDS: Senna/Docusate Sodium 8.6/50 MG Tablet PO SCH (09:22)
[2017-11-13] MEDS: Insulin Detemir Inj 1,000 UNIT/10 ML Vial SQ SCH (09:23)
--- NOTE | 2017-11-13 09:26 | P.DCO ---
Post Hospital Infusion Therapy Patient Weight: 81 kg - Diagnosis (1) Septic arthritis of interphalangeal joint of finger of left hand Code(s): M00.9 - Pyogenic arthritis, unspecified - Additional Information Additional Medications: Ancef 1 gm IV q8h, CADD plus pump or IV push, x 3 weeks, may need longer after seen by Dr Fregoso Venous Access: PICC Line Additional Instructions: [x] Peripheral flush and dressing changes per protocol [x] Implanted port and central linemarker: * Implanted port: 10 ml Normal Saline followed by 5 ml Heparin 100 units/ml Heparin flush after each use and monthly to maintain. [] May leave port accessed during therapy. [] May leave peripheral site accessed for duration of therapy. [x] If patient has SOB or respiratory distress, check oxygen saturation. If less than 90% or clinical signs of respiratory distress, administer oxygen at 2 L/min. via nasal cannula and notify physician. [x] Anaphylaxis/Reaction orders: * Stop infusion. * Keep IV line open with saline flush. * Notify physician. * Monitor vital signs every 15 minutes until symptoms resolve. * Check Oxygen saturation; Oxygen at 2 L/min. via nasal cannula if less than 90% or clinical signs of respiratory distress. * Administer diphenhydramine (Benadryl) 25 mg IV STAT, (unless patient has received as pre-med). May repeat once, if necessary. * Solu-Cortef 250 mg IVP over 30-60 seconds, use 100 mg vials for each dissolution. * Epinephrine (1mg/1 ml) 0.3 mg subcutaneously or IVP now with any signs of respiratory distress. * Check with physician for new additional pre-med orders if patient is re- challenged or re-treated. [x] May remove PICC line when treatment complete, after confirming with Physician. [x] If the patient is admitted to the hospital, the ED, or transferred via [facility] , complete transfer form including medication reconciliation order sheet. Weekly Labs: CBC w/diff, Creatinine (labs every Monday copy to Dr Fregoso) Case Management Consult: Yes Allergies morphine Allergy (Severe, Verified 11/07/17 12:57) RASH,ITCHING adhesive Allergy (Intermediate, Verified 11/07/17 12:57) SKIN PULLS OFF
--- NOTE | 2017-11-13 10:42 | P.PN ---
Subjective Interval history: no fever, no complains of pain looking forward to going home Physical Exam Vital signs: Vital Signs 11/12/17 12:00 11/12/17 16:00 11/12/17 20:00 Temperature 97.9 F 98.3 F 98.3 F Pulse Rate 74 65 66 Respiratory Rate 16 16 20 Blood Pressure 175/77 H 127/60 154/67 H Pulse Oximetry 100 95 95 11/13/17 00:00 11/13/17 04:00 Temperature 97.3 F L 98.3 F Pulse Rate 59 L 90 Respiratory Rate 20 18 Blood Pressure 153/67 H 110/80 Pulse Oximetry 96 91 L Intake & Output 11/12/17 11/13/17 11/13/17 18:59 06:59 18:59 Intake Total 520 / 520 100 / 100 Output Total 1100 / 1100 850 / 850 Balance -580 / -580 -750 / -750 Weight 81 kg 81 kg Intake: IV 100 / 100 Ancef Inj 1,000 MG In NS Inj 100 / 100 100 ML @ 200 mls/hr IV.SIG Q8H [facility] Rx#:[id number] Oral 520 / 520 Output: Urine 1100 / 1100 850 / 850 Other: # Bowel Movements 0 Narrative: General: NAD Left MF- splint and dressing intact, good radial pulses CV: Regular rate and rhythm w/o murmurs. Normal peripheral perfusion RESP: CTAB; normal rate ABD: Soft, nontender, nondistended MSK: No calf asymmetry or tenderness. Grossly normal ROM and motor function Neuro: Awake/alert. Grossly normal CN; grossly normal peripheral motor/sensory function Results - Labs CBC & Chem 7: 11/10/17 14:30 11/12/17 07:20 Laboratory Results - last 24 hr 11/12/17 11/12/17 11/12/17 11:30 17:31 19:35 POC Glucose 180 H 223 H 209 H 11/13/17 11/13/17 03:46 07:52 POC Glucose 179 H 176 H Microbiology 11/07/17 13:35 Blood - Peripheral Aerobic Blood Culture - Final No growth in 5 days 11/07/17 13:35 Blood - Peripheral Anaerobic Blood Culture - Final No growth in 5 days 11/07/17 13:40 Blood - Peripheral Aerobic Blood Culture - Final No growth in 5 days 11/07/17 13:40 Blood - Peripheral Anaerobic Blood Culture - Final No growth in 5 days 11/07/17 17:48 Abscess - Finger Gram Stain - Final 11/07/17 17:48 Abscess - Finger Wound Culture - Final No growth in 72 hours (aerobically and anaerobically ) Assessment and Plan - Assessment (1) Septic arthritis of interphalangeal joint of finger of left hand Code(s): M00.9 - Pyogenic arthritis, unspecified Status: Acute (2) T2DM (type 2 diabetes mellitus) Code(s): E11.9 - Type 2 diabetes mellitus without complications Status: Chronic (3) HTN (hypertension) Code(s): I10 - Essential (primary) hypertension Status: Chronic (4) CAD (coronary artery disease) Code(s): I25.10 - Atherosclerotic heart disease of [place] coronary artery without angina pectoris Status: Chronic (5) Tobacco abuse Code(s): Z72.0 - Tobacco use Status: Chronic - Plan 67 years old female Left MF pyogenic arthritis- Impression: chronic infection of left hand 3rd digit; refractory to prior surgical intervention and IV antibiotics. Previously with MSSA. ESR 12, Cr 0.66. Blood cultures- negative so far Wound culture- negative so far Hand surgery ff -s/p arthrotomy wash of DIP joint of left hand 11/07 -ID ff- per recommendations change to IV ancef 1 gm q 8 per ID recommendation start 11/13 x 3 weeks longer if OP ID- Dr. Fregoso reevaluation VAscular access consulted for PICC -Crane 5mg/325mg for pain control T2DM- uncontrolled A1C- 13. Impression: Unmedicated at home.- in the past was on Novopen- but DC herself from this -Diabetic diet -Continue low dose SS with Accuchecks (8 U sliding scale 7/4, 9 U sliding scale 7/5) -Increased Levemir to bid 10 units bid improving -discussed with her- was on Metformin- adverse GI reaction- unable to tolerate this HTN- improved Impression: Hypertensive urgency today (BP 211/93 without symptoms, no lab abnormalities) Prior HTN; reportedly normotensive often at home -Will continue PRN Vasotec - patient implies that she has White coat hyeprtesnion - Lisinopril to 40mg daily CAD Impression: Prior stenting years prior. Not on ASA, statin, CHERELLE, or BB -Continue ASA 81mg daily -CHERELLE -Will arrange outpatient f/u Tobacco abuse -Will give nicotine patch if desired DVT PPX SCD's Will hold chemical PPX since patient ambulatory Discharge Planning: Per ID and Hand surgery recommendations Long discussion with her- regartding her A1C and blood sugars- she insist that she felt better off all medications Reinforced compian ce and OP ff up with PCP HOpefully DC today after PICC [placed (3) HTN (hypertension) Qualifiers: Hypertension type: essential hypertension Qualified Code(s): I10 - Essential (primary) hypertension (4) CAD (coronary artery disease) Qualifiers: Coronary Disease-Associated Artery/Lesion type: [place] artery (3) HTN (hypertension) Qualifiers: Hypertension type: essential hypertension Qualified Code(s): I10 - Essential (primary) hypertension (4) CAD (coronary artery disease) Qualifiers: Coronary Disease-Associated Artery/Lesion type: [place] artery
[2017-11-13] MEDS ORDERED: Heparin Central Flush 100 UNIT/ML 5 ML Vial IV.FLUSH PRN (13:03)
[2017-11-13] MEDS ORDERED: Heparin Central Flush 100 UNIT/ML 5 ML Vial IV.FLUSH SCH (13:15)
--- NOTE | 2017-11-13 14:48 | P.DS ---
Date of admission: 11/07/17 15:25 Primary care physician: No Primary Care Physician Brief History from admission: Mrs. Su is a 67 yo F with PMH of HTN, T2DM, CAD (s/p prior stenting), tobacco abuse who presents to [facility] ED at recommendation of her hand surgeon for drainage from her left 3rd digit. Patient states that she has been dealing with persistent infection of her left third finger for ~ 1 month. Patient first noticed drainage from area around her L third nail in early October; she went to an urgent care facility and was given oral antibiotics (unspecified). Patient states that her symptoms worsened so she returned to the facility and was given a IM antibiotic. Patient was given instructions to go to a hand surgeon but she was not able to. Patient instead went to ED; I&D performed. Patient was then referred to Dr. Nichols; patient underwent surgical wash 10/20 and subsequent IV antibiotic therapy. She has been following up with infectious disease and hand surgery until she was sent to ED today for additional drainage. No reported fevers. No chest pain, shortness of breath, abnormal bowel movements, or abnormal urination. She is frequently thirsty. Patient states that she has not been taking medications for CAD protection, HTN , or T2DM and that she is generally noncompliant with taking medications at home. DS: Diagnosis - Discharge Diagnosis (1) Septic arthritis of interphalangeal joint of finger of left hand Status: Acute (2) T2DM (type 2 diabetes mellitus) Status: Chronic (3) HTN (hypertension) Status: Chronic (4) CAD (coronary artery disease) Status: Chronic (5) Tobacco abuse Status: Chronic DS: Medications - Discharge Medications Prescriptions: aspirin 81 mg PO DAILY 90 Days #90 tab hydrocodone-acetaminophen 1 tab PO Q8HR PRN #30 tab PRN Reason: Pain Scale 7 To 10 Severe insulin detemir U-100 [Levemir U-100 Insulin] 10 unit SUB-Q BID #1 ml lisinopril 40 mg PO DAILY 30 Days tab DS: Summary Hospital Course: 67 years old female Left MF pyogenic arthritis- Impression: chronic infection of left hand 3rd digit; refractory to prior surgical intervention and IV antibiotics. Previously with MSSA. ESR 12, Cr 0.66. Blood cultures- negative so far Wound culture- negative so far Hand surgery ff -s/p arthrotomy wash of DIP joint of left hand 11/07 -ID ff- per recommendations change to IV ancef 1 gm q 8 per ID recommendation start 11/13 x 3 weeks longer if OP ID- Dr. Fregoso reevaluation VAscular access consulted for PICC -Superior 5mg/325mg for pain control T2DM- uncontrolled A1C- 13. Impression: Unmedicated at home.- in the past was on Novopen- but DC herself from this -Diabetic diet -Continue low dose SS with Accuchecks (8 U sliding scale 7/4, 9 U sliding scale 7/5) -Increased Levemir to bid 10 units bid improving -discussed with her- was on Metformin- adverse GI reaction- unable to tolerate this HTN- improved Impression: Hypertensive urgency today (BP 211/93 without symptoms, no lab abnormalities) Prior HTN; reportedly normotensive often at home -Will continue PRN Vasotec - patient implies that she has White coat hyeprtesnion - Lisinopril to 40mg daily CAD Impression: Prior stenting years prior. Not on ASA, statin, CHERELLE, or BB -Continue ASA 81mg daily -CHERELLE -Will arrange outpatient f/u Tobacco abuse -Will give nicotine patch if desired - Time Spent with Patient Total time spent providing and/or coordinating discharge services: Exam Vital signs: Vital Signs 11/12/17 16:00 11/12/17 20:00 11/13/17 00:00 Temperature 98.3 F 98.3 F 97.3 F L Pulse Rate 65 66 59 L Respiratory Rate 16 20 20 Blood Pressure 127/60 154/67 H 153/67 H Pulse Oximetry 95 95 96 11/13/17 04:00 11/13/17 08:00 11/13/17 12:00 Temperature 98.3 F 97.8 F 98.2 F Pulse Rate 90 71 66 Respiratory Rate 18 18 18 Blood Pressure 110/80 152/93 H 132/80 Pulse Oximetry 91 L 97 94 L Intake & Output 11/12/17 11/13/17 11/13/17 18:59 06:59 18:59 Intake Total 520 / 520 100 / 100 Output Total 1100 / 1100 850 / 850 Balance -580 / -580 -750 / -750 Weight 81 kg 81 kg Intake: IV 100 / 100 Ancef Inj 1,000 MG In NS Inj 100 / 100 100 ML @ 200 mls/hr IV.SIG Q8H [facility] Rx#:[id number] Oral 520 / 520 Output: Urine 1100 / 1100 850 / 850 Other: Date of Last Bowel Movement 11/10/17 # Bowel Movements 0 Results Procedures completed during hospitalization: 11/07- arthrotomy of the joint- left hand Pending studies at discharge: Pending at discharge 11/07/17 Surgical [PTH] Routine Labs on day of discharge: Labs from last 24 hours 11/13/17 11/13/17 11/13/17 12:03 07:52 03:46 POC Glucose 227 H 176 H 179 H 11/12/17 11/12/17 19:35 17:31 POC Glucose 209 H 223 H - Impressions ITS Impressions Finger X-Ray 11/07/17 13:17 CONCLUSION: Soft tissue swelling and possible subluxation of the PIP joint Discharge Plan - Discharge Disposition Patient Disposition: /Home Health Service - Discharge Condition Condition: Stable - Discharge Order Discharge Orders: Discharge Order (Routine); Ordered 11/13/17 Ordered By: Henny Mayfield - Discharge Details Anticipated Discharge Date: 11/13/17 - Physicians Team Primary Care Provider: Primary Care Jeanine Gonzalez Attending Provider: Henny Mayfield Other Providers: Desean Al MD ; Oumou Koo MD ; Wiliam Campa,Agency
== END 2017-11-13 16:27 | disposition home health service (06) ==
LOC: NEPC 11:12 → NEDA 15:25 → N04 20:03
PROVIDERS: ADMIT Internal Medicine; ATTEND Internal Medicine
PROC: [UNRECOGNIZED PROCEDURE] (2017-11-07 17:14)